=== PATIENT | female | born 1985 | race Caucasian/White ===

== ENCOUNTER → 2019-10-17 14:42 | Outpatient (CLI) | payer OTHER, MEDICAID, SELFPAY ==
[2019-10-17 15:22] LABS: Influenza A - CEPHEID Flu A NEGATIVE (NEGATIVE); Influenza B - CEPHEID Flu B NEGATIVE (NEGATIVE)
== END ==
PROVIDERS: Family Provider Family Medicine; PCP Family Medicine; Visit Provider Nurse Practitioner
DX: R68.89 Other general symptoms and signs (principal); J02.9 Acute pharyngitis, unspecified
CPT/HCPCS: 87070; 87077; 87147; 87502

== ENCOUNTER → 2020-05-09 12:03 | Outpatient (CLI) | payer OTHER, MEDICAID, SELFPAY ==
[2020-05-09 12:49] LABS: Add Manual Diff / Slide Review NO; Basophils Absolute Auto 0 /uL (0-100); Eosinophils Absolute Auto 200 /uL (0-450); Eosinophils Percent Auto 3.6 % (2-4); Hematocrit 36.4 % (36-46); Lymphocytes Absolute Auto 2000 /uL (1100-4500); Mean Corpuscular HGB Conc 33.1 % (30-36); Mean Corpuscular Hemoglobin 29.9 PG (26-34); Mean Corpuscular Volume 90.4 fL (80-100); Monocytes Absolute Auto 400 /uL (0-900); Monocytes Percent Auto 7.6 % (3-14); Neutrophils Absolute Auto 2400 /uL (1500-7000); Neutrophils Percent Auto 48.8 % (50-75); Platelet Count 256 X10^3/uL (150-400); Red Blood Cell Count 4.02 X10^6/uL (4.0-5.2); Red Cell Distribution Width 12.4 % (11.6-14.8)
[2020-05-09 13:13] LABS: Erythrocyte Sedimentation Rate 6 MM/HR (0-20)
[2020-05-09 13:16] LABS: Alanine Aminotransferase 10 IU/L (<35); Albumin 4.2 g/dL (3.5-5.0); Albumin Globulin Ratio 1.6 (1.0-2.8); Alkaline Phosphatase 54 U/L (38-126); Aspartate Aminotransferase 16 IU/L (14-36); BUN Creatinine Ratio 18.9 (6-22); Bilirubin Total 0.6 mg/dL (0.2-1.3); Blood Urea Nitrogen 10 mg/dL (7-17); C-Reactive Protein Quant 1.1 mg/dL (<1.0); Carbon Dioxide 27 mmol/L (22-32); Chloride 104 mmol/L (98-107); Estimated Glomerular Filt Rate > 60.0 mL/min (>60); Globulin 2.7 g/dL (1.7-4.1); Glucose 86 mg/dL (70-100); HEMOLYSIS < 15 (0-50); Potassium 4.3 mmol/L (3.4-5.1); Sodium 139 mmol/L (137-145); Total Protein 6.9 g/dL (6.3-8.2)
[2020-05-09 13:37] LABS: TSH w/ Reflex to FT4 1.25 uIU/mL (0.47-4.68)
[2020-05-09 18:12] LABS: Ferritin 25 ng/mL (6-137)
== END ==
PROVIDERS: Family Provider Family Medicine; PCP Family Medicine; Referring Provider Family Medicine; Visit Provider Family Medicine
DX: K52.9 Noninfective gastroenteritis and colitis, unspecified (principal); L65.9 Nonscarring hair loss, unspecified
CPT/HCPCS: 36415; 80053; 82728; 84443; 85025; 85651; 86140

== ENCOUNTER 2020-10-23 18:20 | Emergency (ER) | payer OTHER, MEDICAID, SELFPAY ==
[2020-10-23 18:26] VITALS: BP 148/98; PULSE 95; RESP 16; TEMP 36.3; O2SAT 100
[2020-10-23] MEDS: PROPARACAINE 0.5% OPHTH SOL 1 DROPS EYE-LEFT (18:33)
[2020-10-23] MEDS: FLUORESCEIN 1 MG STRIP EYE-BOTH (20:20)
--- NOTE | 2020-10-23 20:29 | ED_ITS ---
HPI - Eye Problem General Chief complaint: Eye Problems Stated complaint: left eye scratched at work Time Seen by Provider: 10/23/20 19:47 Source: patient Mode of arrival: Ambulatory History of Present Illness HPI Narrative: 35-year-old woman with no significant medical history presents with a minor eye injury. 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 She comes in for further evaluation. She does note redness, bleeding there is no restricted eye movement and no visual or acuity changes. Related Data Home Medications Medication Instructions Recorded Confirmed [arnica] #0 03/23/17 10/17/19 Previous Rx's Medication Instructions Recorded fluconazole 150 mg tablet 150 mg PO ONCE #1 tab 05/04/18 ondansetron 4 mg disintegrating 4 mg PO Q6H #14 tab 10/17/19 tablet azithromycin 250 mg tablet See Rx Instructions PO .COMPLEX #6 10/19/19 tab acyclovir 400 mg tablet 400 mg PO 5XD #35 tab 06/19/20 valacyclovir 1 gram tablet 2,000 mg PO Q12H #30 tab 06/19/20 norgestimate 0.25 mg-ethinyl 1 tab PO DAILY #112 tab 07/12/20 estradiol 35 mcg tablet Allergies Allergy/AdvReac Type Severity Reaction Status Date / Time Penicillins Allergy Severe SWOLLEN Verified 05/09/20 10:51 THROAT, HIVES - HOSPITALIZED nitrofurantoin Allergy Intermediate HIVES, Verified 05/09/20 10:51 INCR HR cephalexin Allergy Unknown Verified 05/09/20 10:51 clindamycin AdvReac Severe C. Verified 05/09/20 10:51 DIFFICILE ciprofloxacin AdvReac Mild DIARRHEA Verified 05/09/20 10:51 Review of Systems Review of Systems ROS Unobtainable: All systems reviewed & are unremarkable except as noted in HPI and below Patient History Medical History (Updated 10/24/20 @ 03:36 by Shweta Nguyen MD) Abnormal Pap smear of cervix Anemia Anxiety Cardiac arrhythmia (~1987) Carpal tunnel syndrome (~2007) Chicken pox Depression Frequent UTI (~2000) Hay fever History of recurrent ear infection (~1987) Human papilloma virus Irregular menstrual cycle Menometrorrhagia Migraines (~2002) Ovarian cyst (~2000) Plantar warts (~2013) Recurrent sinusitis (~1987) Vertigo (~2009) Surgical History Anesthesia History of dilatation and curettage Status post hysteroscopy (11/01/15) Social History marital status: unmarried,living together number of children: 0 household members: significant other lives independently: Yes housing: apartment education level: high school occupational status: employed current occupational exposures/hazards: No special mich needs: No Smoking Status: Former smoker Smoking Status: Former smoker Exam Narrative Exam Narrative: General: Alert appropriate in no acute distress HEENT: No obvious abnormalities on gross exam. Sclerae are unremarkable and noninjected bilaterally. Pupils are equal round and reactive. Slit-lamp exam of the left eye reveals a very small scratch appreciated on the medial aspect of the sclera that is very superficial. Respiratory: Able to speak in full sentences, no obvious respiratory distress Skin: No obvious rashes, warm and dry Neurologic: Grossly intact no obvious asymmetries or abnormalities Psych, appropriate insight and affect, cooperative Initial Vital Signs Initial Vital Signs: Vital Signs Temperature 97.4 F L 10/23/20 18:26 Pulse Rate 95 H 10/23/20 18:26 Respiratory Rate 16 10/23/20 18:26 Blood Pressure 148/98 H 10/23/20 18:26 Pulse Oximetry 100 10/23/20 18:26 Course Orders Ordered: Discontinued Medications Fluorescein Sodium (Fluorescein 1 Mg Strip) 1 mg EYE-BOTH NOW ONE Stop: 10/23/20 20:18 Last Admin: 10/23/20 20:20 Dose: 1 mg Documented by: DONNIE Proparacaine HCl (Proparacaine 0.5% Ophth Deborah) 1 drops EYE-LEFT NOW ONE Stop: 10/23/20 18:31 Last Admin: 10/23/20 18:33 Dose: 1 drops Documented by: SUSAN Vital Signs Vital signs: Vital Signs - 8 hr 10/23/20 18:26 Temperature 97.4 F L Pulse Rate 95 H Respiratory Rate 16 Blood Pressure 148/98 H Pulse Oximetry 100 MDM - Eye Problem MDM Narrative Medical decision making narrative: Minor superficial scratch to the medial aspect of the left sclera without significant injury. Conservative management no additional treatment required at this time. Questions are answered and patie nt is safe for home discharge Discharge Plan Departure Patient Disposition: Home Clinical Impression: Abrasion of sclera of left eye Qualifiers: Encounter type: initial encounter Qualified Code(s): S05.8X2A - Other injuries of left eye and orbit, initial encounter Instructions: DI for Corneal Abrasion Activity Restrictions/Additional Instructions: Thank you for coming in today You do have a very small cut to the surface of your eyeball that should heal beautifully within the next 24 hours. There is no need for antibiotics. There is no indication that this has punctured your eyeball and it is not affecting her vision at this time. Using 400 mg of ibuprofen (2 lxtr-xas-uisnakn pills) and 1 Tylenol every 6 hours can be very helpful in controlling pain. Avoiding computer screens and small detailed work requiring significant focus would be a good idea this evening If anything changes, please return to the emergency department Prescriptions: No Action ondansetron 4 mg tablet,disintegrating 4 mg PO Q6H Qty: 14 RF: 0 [arnica] Qty: 0 RF: 0 fluconazole [Diflucan] 150 mg tablet 150 mg PO ONCE Qty: 1 RF: 1 azithromycin 250 mg tablet See Rx Instructions PO .COMPLEX Qty: 6 RF: 0 acyclovir 400 mg tablet 400 mg PO 5XD Qty: 35 RF: 1 valacyclovir [Valtrex] 1 gram tablet 2,000 mg PO Q12H Qty: 30 RF: 2 norgestimate-ethinyl estradiol 0.25-35 mg-mcg tablet 1 tab PO DAILY Qty: 112 RF: 3 Referrals: Irma Moyer DO [Primary Care Provider] -
== END 2020-10-23 20:58 | disposition home or self-care (01) ==
PROVIDERS: Emergency Provider Emergency Medicine; Family Provider Family Medicine; PCP Family Medicine
DX: S05.8X2A Other injuries of left eye and orbit, initial encounter (principal); Y99.0 Civilian activity done for income or pay
CPT/HCPCS: 99281; 99282

== ENCOUNTER → 2020-12-26 12:02 | Outpatient (CLI) | payer OTHER, MEDICAID, SELFPAY ==
--- NOTE | 2020-12-26 12:03 | DI.RAD.S_ITS ---
PROCEDURE: XR FOOT LT MIN 3V INDICATIONS: left foot injury TECHNIQUE: 3 views of the foot were acquired. COMPARISON: None. FINDINGS: Bones: No fractures or dislocations. No suspicious bony lesions. Soft tissues: No tibiotalar joint effusion. Achilles tendon appears normal. IMPRESSION: No acute fracture. No osseous lesion. If symptoms and/or clinical suspicion for pathology persist, further assessment with repeat, or advanced imaging (e.g., CT, MRI, or bone scan) may be helpful for further assessment. Dictated by: Meliza Cruz M.D. on 12/26/2020 at 16:52 Approved by: Meliza Cruz M.D. on 12/26/2020 at 16:52
== END ==
PROVIDERS: Family Provider Family Medicine; PCP Family Medicine; Referring Provider Family Medicine; Visit Provider Family Medicine
DX: M79.672 Pain in left foot (principal); S93.602A Unspecified sprain of left foot, initial encounter; X58.XXXA Exposure to other specified factors, initial encounter
CPT/HCPCS: 73630

== ENCOUNTER → 2021-07-25 12:30 | Outpatient (CLI) | payer OTHER, MEDICAID, SELFPAY | PROVIDERS: Family Provider Family Medicine; PCP Family Medicine; Referring Provider Internal Medicine; Visit Provider Internal Medicine | DX: Z23 Encounter for immunization (principal) | CPT/HCPCS: 90471; 90686 ==

== ENCOUNTER → 2021-08-05 15:43 | Outpatient (CLI) | payer OTHER, MEDICAID, SELFPAY ==
[2021-08-05 16:10] LABS: COVID19 -Nasal RAPID Negative (Negative)
== END ==
PROVIDERS: Family Provider Family Medicine; PCP Family Medicine; Referring Provider Physician Assistant; Visit Provider Physician Assistant
DX: Z20.822 Contact with and (suspected) exposure to COVID-19 (principal)
CPT/HCPCS: 87635; C9803

== ENCOUNTER → 2021-08-11 16:51 | Outpatient (CLI) | payer OTHER, MEDICAID, SELFPAY ==
[2021-08-11 17:50] LABS: COVID19 -Nasal RAPID Negative (Negative)
== END ==
PROVIDERS: Family Provider Family Medicine; PCP Family Medicine; Visit Provider Physician Assistant
DX: Z20.822 Contact with and (suspected) exposure to COVID-19 (principal)
CPT/HCPCS: 87635; C9803

== ENCOUNTER 2021-09-08 15:12 | Emergency (ER) | payer OTHER, SELFPAY ==
[2021-09-08 15:43] VITALS: BP 106/70; PULSE 92; RESP 18; TEMP 35.8; O2SAT 100; BMI 20.1
--- NOTE | 2021-09-08 15:59 | DI.RAD.S_ITS ---
PROCEDURE: XR CHEST 1V INDICATIONS: COVID + TECHNIQUE: One view of the chest was acquired. COMPARISON: [facility], , CHEST 2 VIEW, 07/19/2010, 13:14. FINDINGS: Surgical changes and devices: None. Lungs and pleura: Lungs are clear. No pleural effusions or pneumothorax. Mediastinum: Mediastinal contours appear normal. Heart size is normal. Bones and chest wall: No suspicious bony lesions. Overlying soft tissues appear unremarkable. IMPRESSION: No acute cardiopulmonary disease process. Dictated by: Cathleen Rodriguez MD, PhD on 09/08/2021 at 16:07 Approved by: Cathleen Rodriguez MD, PhD on 09/08/2021 at 16:08
--- NOTE | 2021-09-08 16:30 | ED_ITS ---
HPI - Chest Pain <Jessa Victor PA-C - Last Filed: 09/08/21 17:37> General Chief Complaint: Chest Pain Stated Complaint: chest pains, hard to breath Covid + Time Seen by Provider: 09/08/21 16:29 Source: patient Mode of arrival: Ambulatory Limitations: no limitations History of Present Illness HPI narrative: 35-year-old female with past medical history anxiety and recent COVID-19 infection presents to the ED with 2 days of chest pain. Patient states she was diagnosed with COVID-19 1 week ago, experienced fevers, cough, myalgias. Starting yesterday, patient endorses feeling substernal chest pain when she takes a deep breath, and feeling like she needs to take good deep breath to get enough air. Patient denies any nausea, vomiting, lightheadedness, dizziness, syncope. Patient is vaccinated for COVID. Related Data Previous Rx's Medication Instructions Recorded valacyclovir 1 gram tablet 2,000 mg PO Q12H PRN #30 tab 08/13/21 (Valtrex) Allergies Allergy/AdvReac Type Severity Reaction Status Date / Time Penicillins Allergy Severe SWOLLEN Verified 09/08/21 15:51 THROAT, HIVES - HOSPITALIZED nitrofurantoin Allergy Intermediate HIVES, Verified 09/08/21 15:51 INCR HR cephalexin Allergy Unknown Verified 09/08/21 15:51 clindamycin AdvReac Severe C. Verified 09/08/21 15:51 DIFFICILE ciprofloxacin AdvReac Mild DIARRHEA Verified 09/08/21 15:51 Review of Systems <Jessa Victor PA-C - Last Filed: 09/08/21 17:37> Review of Systems ROS Unobtainable: All systems reviewed & are unremarkable except as noted in HPI and below Constitutional Constitutional: Reports body ache(s), Denies chills, Denies fatigue, Reports fever(s), Denies frequent falls, Denies lethargy and Denies weakness Eyes Eyes: Denies change in vision, Denies eye discharge, Denies irritation and Denies loss of vision ENT Ears, Nose, Mouth, and Throat: Denies change in voice, Denies dizziness, Denies neck pain, Denies sore throat and Denies throat swelling Cardiovascular Cardiovascular: Reports chest pain, Denies irregular heart rhythm, Denies lightheadedness, Denies palpitations, Reports dyspnea, Denies dyspnea on exertion and Denies orthopnea Respiratory Respiratory: Reports cough, Reports dyspnea, Denies dyspnea on exertion and Denies wheezing Gastrointestinal Gastrointestinal: Denies abdominal pain, Denies change in bowel habits, Denies diarrhea, Denies nausea and Denies vomiting Genitourinary Genitourinary: Denies hematuria, Denies flank pain, Denies urinary incontinence and Denies urinary urgency Musculoskeletal Musculoskeletal: Denies back pain, Denies muscle weakness, Denies neck pain, Denies numbness and Denies tingling Integumentary/Breasts Skin/Breast: Denies pruritus, Denies erythema, Denies rash and Denies wounds Neurologic Neurologic: Denies behavioral changes, Denies confusion, Denies dizziness, Denies frequent falls, Denies loss of vision, Denies numbness, Denies tingling and Denies weakness Psychiatric Psychiatric: Denies anxiety, Denies behavioral changes, Denies confusion, Denies depression, Denies homicidal ideation and Denies suicidal ideation Endocrine Endocrine: Denies fatigue, Denies flushing and Denies palpitations Hematologic/Lymphatic Hematologic/Lymphatic: Denies easy bruising Allergic/Immunologic Allergic/Immunologic: Denies urticaria, Denies throat swelling and Denies wheezing Patient History <Jessa Victor PA-C - Last Filed: 09/08/21 17:37> Medical History Abnormal Pap smear of cervix Anemia Anxiety Cardiac arrhythmia (~1987) Carpal tunnel syndrome (~2007) Chicken pox Depression Frequent UTI (~2000) Hay fever History of recurrent ear infection (~1987) Human papilloma virus Irregular menstrual cycle Menometrorrhagia Migraines (~2002) Ovarian cyst (~2000) Plantar warts (~2013) Recurrent sinusitis (~1987) Vertigo (~2009) Surgical History Anesthesia History of dilatation and curettage Status post hysteroscopy (11/01/15) Social History marital status: unmarried,living together number of children: 0 household members: significant other lives independently: Yes housing: apartment education level: high school occupational status: employed current occupational exposures/hazards: No special mich needs: No Smoking Status: Former smoker Smoking Status: Former smoker Substance Use Type: does not use Exam <SHARI Rubin Last Filed: 09/08/21 17:37> Initial Vital Signs Initial Vital Signs: Vital Signs Temperature 96.4 F L 09/08/21 15:43 Pulse Rate 92 H 09/08/21 15:43 Respiratory Rate 18 09/08/21 15:43 Blood Pressure 106/70 09/08/21 15:43 Pulse Oximetry 100 09/08/21 15:43 Const General: cooperative, healthy appearing and comfortable HENMT Head: normal to inspection Mouth: oral mucosae normal Throat: posterior oropharynx normal Eyes General: appearance normal, both eyes and all related structures Neck Neck: normal visual inspection Chest Chest: normal inspection of the chest Resp Effort & Inspection: decreased respiratory effort Auscultation: clear to auscultation bilaterally Cardio Rate: regular rate Rhythm: regular rhythm GI Other: Abdomen is soft, nondistended, nontender to palpation. Skin General: no rashes or lesions noted Neuro General: patient alert, patient awake and patient oriented x3 Psych Appearance: grossly normal <Patricia Parra DO - Last Filed: 09/09/21 09:20> Initial Vital Signs Initial Vital Signs: Vital Signs Temperature 96.4 F L 09/08/21 15:43 Pulse Rate 92 H 09/08/21 15:43 Respiratory Rate 18 09/08/21 15:43 Blood Pressure 106/70 09/08/21 15:43 Pulse Oximetry 100 09/08/21 15:43 Course <SHARI Rubin Last Filed: 09/08/21 17:37> Orders Ordered: ED Orders 09/08/21 15:59 XR chest 1V Stat 09/08/21 16:13 EKG-12 Lead Stat 09/08/21 16:15 C-Reactive Protein Quant Stat Complete Blood Count AUTO DIFF Stat Comprehensive Metabolic Panel Stat D Dimer Stat Ferritin Stat Lactate (Lactic Acid) Stat Lactate Dehydrogenase Stat NT-proBNP (BNP-Adult 18+) Stat Procalcitonin Stat Troponin & CK Cardiac Panel Stat 09/08/21 16:28 Blood Culture Stat Vital Signs Vital signs: Vital Signs - 8 hr 09/08/21 15:43 09/08/21 17:03 09/08/21 17:04 Temperature 96.4 F L Pulse Rate 92 H 80 78 Respiratory Rate 18 Blood Pressure 106/70 104/52 L Pulse Oximetry 100 100 99 09/08/21 17:33 Temperature Pulse Rate 76 Respiratory Rate 16 Blood Pressure 108/74 Pulse Oximetry 100 <Patricia Parra DO - Last Filed: 09/09/21 09:20> Orders Ordered: ED Orders 09/08/21 15:59 XR chest 1V Stat 09/08/21 16:13 EKG-12 Lead Stat 09/08/21 16:15 C-Reactive Protein Quant Stat Complete Blood Count AUTO DIFF Stat Comprehensive Metabolic Panel Stat D Dimer Stat Ferritin Stat Lactate (Lactic Acid) Stat Lactate Dehydrogenase Stat NT-proBNP (BNP-Adult 18+) Stat Procalcitonin Stat Troponin & CK Cardiac Panel Stat 09/08/21 16:28 Blood Culture Stat Vital Signs Vital signs: Vital Signs - 8 hr 09/08/21 15:43 09/08/21 17:03 09/08/21 17:04 Temperature 96.4 F L Pulse Rate 92 H 80 78 Respiratory Rate 18 Blood Pressure 106/70 104/52 L Pulse Oximetry 100 100 99 09/08/21 17:33 Temperature Pulse Rate 76 Respiratory Rate 16 Blood Pressure 108/74 Pulse Oximetry 100 MDM - Chest Pain <Jessa Victor PA-C - Last Filed: 09/08/21 17:37> Medical Records Data Attestation: I reviewed the patient's medical records. Lab Data Attestation: I reviewed the patient's lab results. Lab results narrative: Labs within normal limits Result diagrams: 09/08/21 16:15 09/08/21 16:15 Labs: Lab Results 09/08/21 09/08/21 09/08/21 Range/Units 16:15 16:15 16:15 WBC 5.1 (4.5-11.0) X10^3/uL RBC 4.20 (4.0-5.2) X10^6/uL Hgb 13.1 (12.0-16.0) g/dL Hct 37.3 (36-46) % MCV 88.7 (80-100) fL MCH 31.1 (26-34) PG MCHC 35.1 (30-36) % RDW 12.5 (11.6-14.8) % Plt Count 181 (150-400) X10^3/uL Neut % (Auto) 54.8 (50-75) % Lymph % (Auto) 37.1 (25-40) % [place] % (Auto) 7.2 (3-14) % Eos % (Auto) 0.4 L (2-4) % Baso % (Auto) 0.5 (0-2) % Neut # (Auto) 2800 (6622-0044) /uL Lymph # (Auto) 1900 (2483-5078) /uL [place] # (Auto) 400 (0-900) /uL Eos # (Auto) 0 (0-450) /uL Baso # (Auto) 0 (0-100) /uL D-Dimer < 200 (<230) ng/mL Sodium 141 (137-145) mmol/L Potassium 4.2 (3.4-5.1) mmol/L Chloride 105 (98-107) mmol/L Carbon Dioxide 30 (22-32) mmol/L BUN 11 (7-17) mg/dL Creatinine 0.55 (0.52-1.04) mg/dL Estimated GFR > 60.0 (>60) mL/min BUN/Creatinine Ratio 20.0 (6-22) Glucose 85 (70-100) mg/dL Lactate (0.7-2.1) mmol/L Calcium 9.4 (8.4-10.2) mg/dL Ferritin 44 (6-137) ng/mL Total Bilirubin 0.6 (0.2-1.3) mg/dL AST 28 (14-36) IU/L ALT 20 (<35) IU/L Alkaline Phosphatase 43 (38-126) U/L Lactate Dehydrogenase 322 (313-618) U/L Total Creatine Kinase 26 L (30-135) U/L CK-MB (CK-2) TNP CK-MB (CK-2) Rel Index TNP Troponin I < 0.012 (0.01-0.034) ng/mL C-Reactive Protein < 0.5 (<1.0) mg/dL NT-Pro-B Natriuret Pep 29 (<125) pg/mL Total Protein 7.9 (6.3-8.2) g/dL Albumin 4.8 (3.5-5.0) g/dL Globulin 3.1 (1.7-4.1) g/dL Albumin/Globulin Ratio 1.5 (1.0-2.8) Procalcitonin 0.04 (<0.5) ng/mL 09/08/21 Range/Units 16:15 WBC (4.5-11.0) X10^3/uL RBC (4.0-5.2) X10^6/uL Hgb (12.0-16.0) g/dL Hct (36-46) % MCV (80-100) fL MCH (26-34) PG MCHC (30-36) % RDW (11.6-14.8) % Plt Count (150-400) X10^3/uL Neut % (Auto) (50-75) % Lymph % (Auto) (25-40) % [place] % (Auto) (3-14) % Eos % (Auto) (2-4) % Baso % (Auto) (0-2) % Neut # (Auto) (3359-5189) /uL Lymph # (Auto) (9697-2869) /uL [place] # (Auto) (0-900) /uL Eos # (Auto) (0-450) /uL Baso # (Auto) (0-100) /uL D-Dimer (<230) ng/mL Sodium (137-145) mmol/L Potassium (3.4-5.1) mmol/L Chloride (98-107) mmol/L Carbon Dioxide (22-32) mmol/L BUN (7-17) mg/dL Creatinine (0.52-1.04) mg/dL Estimated GFR (>60) mL/min BUN/Creatinine Ratio (6-22) Glucose (70-100) mg/dL Lactate 0.9 (0.7-2.1) mmol/L Calcium (8.4-10.2) mg/dL Ferritin (6-137) ng/mL Total Bilirubin (0.2-1.3) mg/dL AST (14-36) IU/L ALT (<35) IU/L Alkaline Phosphatase (38-126) U/L Lactate Dehydrogenase (313-618) U/L Total Creatine Kinase (30-135) U/L CK-MB (CK-2) CK-MB (CK-2) Rel Index Troponin I (0.01-0.034) ng/mL C-Reactive Protein (<1.0) mg/dL NT-Pro-B Natriuret Pep (<125) pg/mL Total Protein (6.3-8.2) g/dL Albumin (3.5-5.0) g/dL Globulin (1.7-4.1) g/dL Albumin/Globulin Ratio (1.0-2.8) Procalcitonin (<0.5) ng/mL Imaging Data Chest x-ray: Radiologist's Impression: PROCEDURE:? XR CHEST 1V ? INDICATIONS:? COVID + ? TECHNIQUE:? One view of the chest was acquired.? ? COMPARISON:? [facility], , CHEST 2 VIEW, 07/19/2010, 13:14. ? FINDINGS:? ? Surgical changes and devices:? None.? ? Lungs and pleura:? Lungs are clear.? No pleural effusions or pneumothorax.? ? Mediastinum:? Mediastinal contours appear normal.? Heart size is normal.? ? Bones and chest wall:? No suspicious bony lesions.? Overlying soft tissues appear unremarkable.? ? ? IMPRESSION:? No acute cardiopulmonary disease process. ? ? ? Dictated by: Cathleen Rodriguez MD, PhD on 09/08/2021 at 16:07 ? ? Approved by: Cathleen Rodriguez MD, PhD on 09/08/2021 at 16:08 ? ECG Data Interpretation: Sinus rhythm. No ST-T changes. No axis deviation MDM Narrative Medical decision making narrative: 35-year-old female with past medical history anxiety and recent COVID-19 infection presents to the ED with 2 days of chest pain. Concern for pneumonia secondary to COVID-19 versus ACS versus heart failure. Will order labs, EKG, chest x-ray, troponin, BNP. Will re-evaluate. Workup negative. Will discharge home with ED return precautions, isolation/quarantine guidelines. <Patricia Parra, DO - Last Filed: 09/09/21 09:20> Lab Data Labs: Lab Results 09/08/21 09/08/21 09/08/21 Range/Units 16:15 16:15 16:15 WBC 5.1 (4.5-11.0) X10^3/uL RBC 4.20 (4.0-5.2) X10^6/uL Hgb 13.1 (12.0-16.0) g/dL Hct 37.3 (36-46) % MCV 88.7 (80-100) fL MCH 31.1 (26-34) PG MCHC 35.1 (30-36) % RDW 12.5 (11.6-14.8) % Plt Count 181 (150-400) X10^3/uL Neut % (Auto) 54.8 (50-75) % Lymph % (Auto) 37.1 (25-40) % [place] % (Auto) 7.2 (3-14) % Eos % (Auto) 0.4 L (2-4) % Baso % (Auto) 0.5 (0-2) % Neut # (Auto) 2800 (8458-2890) /uL Lymph # (Auto) 1900 (1206-4866) /uL [place] # (Auto) 400 (0-900) /uL Eos # (Auto) 0 (0-450) /uL Baso # (Auto) 0 (0-100) /uL D-Dimer < 200 (<230) ng/mL Sodium 141 (137-145) mmol/L Potassium 4.2 (3.4-5.1) mmol/L Chloride 105 (98-107) mmol/L Carbon Dioxide 30 (22-32) mmol/L BUN 11 (7-17) mg/dL Creatinine 0.55 (0.52-1.04) mg/dL Estimated GFR > 60.0 (>60) mL/min BUN/Creatinine Ratio 20.0 (6-22) Glucose 85 (70-100) mg/dL Lactate (0.7-2.1) mmol/L Calcium 9.4 (8.4-10.2) mg/dL Ferritin 44 (6-137) ng/mL Total Bilirubin 0.6 (0.2-1.3) mg/dL AST 28 (14-36) IU/L ALT 20 (<35) IU/L Alkaline Phosphatase 43 (38-126) U/L Lactate Dehydrogenase 322 (313-618) U/L Total Creatine Kinase 26 L (30-135) U/L CK-MB (CK-2) TNP CK-MB (CK-2) Rel Index TNP Troponin I < 0.012 (0.01-0.034) ng/mL C-Reactive Protein < 0.5 (<1.0) mg/dL NT-Pro-B Natriuret Pep 29 (<125) pg/mL Total Protein 7.9 (6.3-8.2) g/dL Albumin 4.8 (3.5-5.0) g/dL Globulin 3.1 (1.7-4.1) g/dL Albumin/Globulin Ratio 1.5 (1.0-2.8) Procalcitonin 0.04 (<0.5) ng/mL 09/08/21 Range/Units 16:15 WBC (4.5-11.0) X10^3/uL RBC (4.0-5.2) X10^6/uL Hgb (12.0-16.0) g/dL Hct (36-46) % MCV (80-100) fL MCH (26-34) PG MCHC (30-36) % RDW (11.6-14.8) % Plt Count (150-400) X10^3/uL Neut % (Auto) (50-75) % Lymph % (Auto) (25-40) % [place] % (Auto) (3-14) % Eos % (Auto) (2-4) % Baso % (Auto) (0-2) % Neut # (Auto) (0728-5444) /uL Lymph # (Auto) (8808-4957) /uL [place] # (Auto) (0-900) /uL Eos # (Auto) (0-450) /uL Baso # (Auto) (0-100) /uL D-Dimer (<230) ng/mL Sodium (137-145) mmol/L Potassium (3.4-5.1) mmol/L Chloride (98-107) mmol/L Carbon Dioxide (22-32) mmol/L BUN (7-17) mg/dL Creatinine (0.52-1.04) mg/dL Estimated GFR (>60) mL/min BUN/Creatinine Ratio (6-22) Glucose (70-100) mg/dL Lactate 0.9 (0.7-2.1) mmol/L Calcium (8.4-10.2) mg/dL Ferritin (6-137) ng/mL Total Bilirubin (0.2-1.3) mg/dL AST (14-36) IU/L ALT (<35) IU/L Alkaline Phosphatase (38-126) U/L Lactate Dehydrogenase (313-618) U/L Total Creatine Kinase (30-135) U/L CK-MB (CK-2) CK-MB (CK-2) Rel Index Troponin I (0.01-0.034) ng/mL C-Reactive Protein (<1.0) mg/dL NT-Pro-B Natriuret Pep (<125) pg/mL Total Protein (6.3-8.2) g/dL Albumin (3.5-5.0) g/dL Globulin (1.7-4.1) g/dL Albumin/Globulin Ratio (1.0-2.8) Procalcitonin (<0.5) ng/mL Discharge Plan Departure Patient Disposition: Home Clinical Impression: COVID-19 Instructions: DI for COVID-19 (Suspected or Confirmed ) Activity Restrictions/Additional Instructions: You were evaluated in the ED today for chest pain. Your EKG, chest x-ray, labs, vitals. were normal. Your symptoms are likely due to the COVID-19 infection. You may continue to take Tylenol and [id number] cough medications for symptoms. Return to the ED if you experience trouble breathing, chest pain. Please follow CDC guidelines for isolation/quarantine, which is currently isolation for 5 days from the onset of symptoms, followed by 5 days of masking in public after your symptoms have resolved. Prescriptions: No Action valacyclovir [Valtrex] 1 gram tablet 2,000 mg PO Q12H PRN (Reason: cold sores) Qty: 30 2RF Rx Instructions: Take 2 tabs every 12 hours x 1 day as needed for cold sores Referrals: Irma Moyer DO [Primary Care Provider] - <Patricia Parra DO - Last Filed: 09/09/21 09:20> Cosign ED Attending Coskristinature Attestation: I was immediately available in the department for consultation. Documentation has been reviewed.
[2021-09-08 16:50] LABS: Add Manual Diff / Slide Review NO; Basophils Absolute Auto 0 /uL (0-100); Basophils Percent Auto 0.5 % (0-2); Eosinophils Absolute Auto 0 /uL (0-450); Eosinophils Percent Auto 0.4 % (2-4); Hematocrit 37.3 % (36-46); Hemoglobin 13.1 g/dL (12.0-16.0); Lymphocytes Absolute Auto 1900 /uL (1100-4500); Lymphocytes Percent Auto 37.1 % (25-40); Mean Corpuscular HGB Conc 35.1 % (30-36); Mean Corpuscular Hemoglobin 31.1 PG (26-34); Mean Corpuscular Volume 88.7 fL (80-100); Monocytes Absolute Auto 400 /uL (0-900); Monocytes Percent Auto 7.2 % (3-14); Neutrophils Absolute Auto 2800 /uL (1500-7000); Neutrophils Percent Auto 54.8 % (50-75); Platelet Count 181 X10^3/uL (150-400); Red Cell Distribution Width 12.5 % (11.6-14.8); White Blood Cell Count 5.1 X10^3/uL (4.5-11.0)
[2021-09-08 16:55] LABS: Lactate (Lactic Acid) 0.9 mmol/L (0.7-2.1)
[2021-09-08 16:58] LABS: Alanine Aminotransferase 20 IU/L (<35); Albumin 4.8 g/dL (3.5-5.0); Albumin Globulin Ratio 1.5 (1.0-2.8); Alkaline Phosphatase 43 U/L (38-126); Aspartate Aminotransferase 28 IU/L (14-36); Bilirubin Total 0.6 mg/dL (0.2-1.3); Blood Urea Nitrogen 11 mg/dL (7-17); C-Reactive Protein Quant < 0.5 mg/dL (<1.0); Calcium 9.4 mg/dL (8.4-10.2); Carbon Dioxide 30 mmol/L (22-32); Chloride 105 mmol/L (98-107); Creatine Kinase 26 U/L (30-135); Estimated Glomerular Filt Rate > 60.0 mL/min (>60); Globulin 3.1 g/dL (1.7-4.1); Glucose 85 mg/dL (70-100); HEMOLYSIS < 15 (0-50); Lactate Dehydrogenase 322 U/L (313-618); Potassium 4.2 mmol/L (3.4-5.1); Sodium 141 mmol/L (137-145); Total Protein 7.9 g/dL (6.3-8.2)
[2021-09-08 17:03] VITALS: PULSE 80; O2SAT 100
[2021-09-08 17:04] VITALS: BP 104/52; PULSE 78; O2SAT 99
[2021-09-08 17:07] LABS: NT-proBNP (BNP-Adult 18+) 29 pg/mL (<125); Troponin I < 0.012 ng/mL (0.01-0.034)
[2021-09-08 17:11] LABS: Procalcitonin 0.04 ng/mL (<0.5)
[2021-09-08 17:13] LABS: D Dimer < 200 ng/mL (<230)
[2021-09-08 17:29] LABS: Ferritin 44 ng/mL (6-137)
[2021-09-08 17:33] VITALS: BP 108/74; PULSE 76; RESP 16; O2SAT 100
== END 2021-09-08 17:34 | disposition home or self-care (01) ==
PROVIDERS: Emergency Medicine; Emergency Provider Student in an Organized Health Care Education/Training Program; Family Provider Family Medicine; PCP Family Medicine
DX: U07.1 COVID-19 (principal); Z87.891 Personal history of nicotine dependence
CPT/HCPCS: 36415; 71045; 80053; 82550; 82728; 83605; 83615; 83880; 84145; 84484; 85025; 85379; 86140; 87040; 93005; 93010; 99283; 99284

== ENCOUNTER → 2021-12-29 12:53 | Outpatient (CLI) | payer OTHER, MEDICAID, SELFPAY ==
[2021-12-29 13:52] LABS: Add Manual Diff / Slide Review NO; Basophils Absolute Auto 100 /uL (0-100); Basophils Percent Auto 1.2 % (0-2); Eosinophils Absolute Auto 200 /uL (0-450); Eosinophils Percent Auto 2.5 % (2-4); Hematocrit 37.7 % (36-46); Hemoglobin 12.8 g/dL (12.0-16.0); Lymphocytes Absolute Auto 1900 /uL (1100-4500); Lymphocytes Percent Auto 27.8 % (25-40); Mean Corpuscular HGB Conc 33.9 % (30-36); Mean Corpuscular Hemoglobin 30.2 PG (26-34); Mean Corpuscular Volume 89.1 fL (80-100); Monocytes Absolute Auto 500 /uL (0-900); Monocytes Percent Auto 7.1 % (3-14); Neutrophils Absolute Auto 4100 /uL (1500-7000); Neutrophils Percent Auto 61.4 % (50-75); Platelet Count 274 X10^3/uL (150-400); Red Blood Cell Count 4.23 X10^6/uL (4.0-5.2); Red Cell Distribution Width 12.7 % (11.6-14.8); White Blood Cell Count 6.7 X10^3/uL (4.5-11.0)
[2021-12-29 14:42] LABS: TSH w/ Reflex to FT4 0.32 uIU/mL (0.47-4.68)
[2021-12-29 15:07] LABS: Free T4, Direct Thyroxine 1.34 ng/dL (0.78-2.19)
== END ==
PROVIDERS: Family Provider Family Medicine; PCP Family Medicine; Referring Provider Family Medicine; Visit Provider Family Medicine
DX: N92.1 Excessive and frequent menstruation with irregular cycle (principal)
CPT/HCPCS: 36415; 84439; 84443; 85025

== ENCOUNTER → 2022-02-05 12:23 | Outpatient (CLI) | payer OTHER, MEDICAID, SELFPAY | PROVIDERS: Family Provider Family Medicine; PCP Family Medicine; Visit Provider Nurse Practitioner Family | DX: J31.2 Chronic pharyngitis (principal) | CPT/HCPCS: 87070; 87880 ==

== ENCOUNTER → 2022-02-11 16:30 | Outpatient (CLI) | payer OTHER, MEDICAID, SELFPAY ==
[2022-02-11 17:53] LABS: TSH w/ Reflex to FT4 0.36 uIU/mL (0.47-4.68)
[2022-02-12 21:05] LABS: Free T4, Direct Thyroxine 1.22 ng/dL (0.78-2.19)
[2022-02-13 19:07] LABS: ANA Screen, IFA Positive (.)
== END ==
PROVIDERS: Family Provider Family Medicine; PCP Family Medicine; Referring Provider Family Medicine; Visit Provider Family Medicine
DX: E05.90 Thyrotoxicosis, unspecified without thyrotoxic crisis or storm (principal); N92.6 Irregular menstruation, unspecified
CPT/HCPCS: 36415; 84439; 84443; 86038

== ENCOUNTER → 2022-05-12 14:25 | Outpatient (CLI) | payer OTHER, MEDICAID, SELFPAY ==
--- NOTE | 2022-05-12 14:27 | DI.US.S_ITS ---
PROCEDURE: US PELVIC COMPLETE INDICATIONS: FOLLOW UP OVARIAN CYST TECHNIQUE: Real-time scanning was performed of the pelvic organs, with image documentation. Additional endovaginal scanning was necessary due to incomplete visualization of the adnexal and endometrial structures by transabdominal scanning. COMPARISON: [facility], US, US PELVIC COMPLETE WITH TRANSVAGINAL, 02/05/2022, 16:42. [facility], [place], PELVIC COMPLETE, 10/14/2015, 12:31. [facility], [place], PELVIC COMPLETE, 09/16/2009, 8:20. FINDINGS: Uterus: Uterus is anteverted and normal in size at 7.5 x 4.3 x 2.5 cm. The myometrium is homogeneous. The endometrium measures 4 mm combined thickness. There are prominent, ectatic veins within the lower uterine segment. Ovaries: The right ovary measures 2.6 x 3.1 x 1.5 cm, with a calculated ovarian volume of 6.3 cc. The left ovary measures 3.5 x 2.0 x 1.7 cm, with a calculated ovarian volume of 6.2 cc. The ovaries have a normal sonographic appearance. Greater than than 12 follicles can be seen in the right ovary. The left ovary is not well characterized. No adnexal masses are seen. There is a dominant left follicle. Other: No pathologic free abdominal or pelvic fluid. IMPRESSION: 1. Greater than 12 subcentimeter follicles are visualized within the right ovary. The left ovary is not well characterized on the current study. This finding meets the [place] definition of polycystic ovaries. In the absence of ovulatory dysfunction or clinically/biochemically diagnosed hyperandrogenism, findings are non specific and do not indicate the presence of polycystic ovarian syndrome. 2. Engorged vessels within the lower uterine segment which can be associated with pelvic congestion. We strive to produce accurate, complete, and clear reports of imaging services. To assist us in improving patient care, this report was composed using standard report templates and voice recognition software. Therefore, it may contain abnormal punctuation, insertions and/or omissions. Occasional wrong-word or sound-alike substitutions may occur. Though we review the report and make efforts to correct it, we do recommend that the report be read carefully in proper context to recognize any text inaccuracies. Dictated by: Melisa Coffey M.D. on 05/13/2022 at 8:21 Approved by: Melisa Coffey M.D. on 05/13/2022 at 8:27
== END ==
PROVIDERS: Family Provider Family Medicine; PCP Family Medicine; Referring Provider Obstetrics & Gynecology; Visit Provider Obstetrics & Gynecology
DX: N93.9 Abnormal uterine and vaginal bleeding, unspecified (principal)
CPT/HCPCS: 76830; 76856

== ENCOUNTER → 2022-07-02 12:29 | Outpatient (CLI) | payer OTHER, MEDICAID, SELFPAY ==
[2022-07-02 13:36] LABS: Hematocrit 34.6 % (36-46); Hemoglobin 11.8 g/dL (12.0-16.0); Mean Corpuscular HGB Conc 34.2 % (30-36); Mean Corpuscular Hemoglobin 30.5 PG (26-34); Mean Corpuscular Volume 89.1 fL (80-100); Platelet Count 232 X10^3/uL (150-400); Red Blood Cell Count 3.89 X10^6/uL (4.0-5.2); Red Cell Distribution Width 12.6 % (11.6-14.8)
[2022-07-02 14:42] LABS: TSH w/ Reflex to FT4 1.15 uIU/mL (0.47-4.68)
[2022-07-10 09:50] LABS: Percent Free Testosterone 1.28 % (0.50-2.80); Testosterone Free 0.17 ng/dL (0.10-0.85); Testosterone Total 12.9 ng/dL (10.0-55.0)
== END ==
PROVIDERS: Family Provider Family Medicine; PCP Family Medicine; Referring Provider Obstetrics & Gynecology; Visit Provider Obstetrics & Gynecology
DX: N93.9 Abnormal uterine and vaginal bleeding, unspecified (principal); E28.2 Polycystic ovarian syndrome
CPT/HCPCS: 36415; 82627; 84402; 84403; 84443; 85027

== ENCOUNTER 2022-09-23 10:30 | Outpatient (RCR) | payer OTHER, MEDICAID, SELFPAY ==
--- NOTE | 2022-07-30 17:45 | PT.OIE ---
Current Diagnoses Segmental and somatic dysfunction of pelvic region (07/30/22) Other specified conditions associated with female genital organs and menstrual cycle (07/30/22) Pelvic and perineal pain (07/30/22) Past Medical History (Last Reviewed 07/10/22 @ 18:58 by ALANNAH Mederos) Abnormal Pap smear of cervix Anemia Anxiety Cardiac arrhythmia (~1987) Carpal tunnel syndrome (~2007) Chicken pox Depression Frequent UTI (~2000) Hay fever History of recurrent ear infection (~1987) Human papilloma virus Irregular menstrual cycle Menometrorrhagia Migraines (~2002) Ovarian cyst (~2000) Plantar warts (~2013) Recurrent sinusitis (~1987) Vertigo (~2009) Past Surgical History (Last Reviewed 07/10/22 @ 18:58 by ALANNAH Mederos) Anesthesia History of dilatation and curettage Status post hysteroscopy (11/01/15) Visit Care Team Role Provider Type Irma Moyer DO Family Provider Physician Primary Care Provider Specialty: [facility] Practice Address: [address] [place] [address] Email: [email or web address] Attending Provider Referring Provider Specialty: Address: Phone: Fax: Email: Physical Therapy Initial Evaluation PT-OP-A Visit Information Start: 07/30/22 12:59 Freq: Status: Active Protocol: Document 07/30/22 16:07 [facility] (Rec: 07/30/22 16:41 [facility] [id number]) Out-Patient Physical Therapy Visit Information Visit Information Visit Type Initial Evaluation Visit Start Time 16:00 Visit Stop Time 16:45 Total Visit Minutes 45 Visit Number 1 Evaluation Information Evaluation Date 07/30/22 PT-OP-B Current Condition Start: 07/30/22 12:59 Freq: Status: Active Protocol: Document 07/30/22 16:07 [facility] (Rec: 07/30/22 16:41 [facility] [id number]) Current Condition History of Current Condition Current Complaints pelvic pain, bladder urgency, decreaed ability to fully void History of Current Condition pt has had pelvic pain since she got her first period, she was put on control when she was 15. She went off the control last year as she wants to have a baby, she started having a lot of pain, she experienced lengthy periods, she was diagnosed with polycystic ovarian syndrome, endometretiosis, pain can get so bad that walking can make her sick, she has engorged blood vessels in her uterus and pelvic congestion syndrome She has 13 cycts on both of her ovaries SHe did go back on control x 5 months ago and periods have been more regulated SHe had a mass on her uterus in 2016 and they went in and cleaned it all up. She feels pelvic pressure and heaviness and so much pressure This last year she started getting rectal spasms as well as in her vaginal canal. Sometimes the spasms were more on the left side. She has irratible bowel with diarhea She feels like she can't fully empty her bladder She has a strong urge to void and she feels like her bladder is very small. 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 be stripped last june Treatment Goals Patient/Caregiver Goals pts goals are to reduce pain and improve function Prior Functional Status Baseline Function- ADL's Independent Baseline Function- Mobility Independent PT-OP-C Subjective Start: 07/30/22 12:59 Freq: Status: Active Protocol: Document 07/30/22 17:05 [facility] (Rec: 08/04/22 17:20 [facility] [id number]) Patient Questionnaires Pelvic Pain and Urgency/Frequency Patient Symptom Scale Pelvic Pain Score 22 OP-PT Pain Assessment Location suprapubic fascia Pain Location Details suprapubic fascia Intensity 9 Scale Used Numeric (0 - 10) Description- Other pt describes pelvic pressure and heaviness coccyx Pain Location Details coccyx pain Intensity 9 Scale Used Numeric (0 - 10) Description Aching Description- Other pt describes pain as ranging from 6-9/10 Frequency Daily B Low back Pain Location Details Bilateral low back pain Intensity 6 Scale Used Numeric (0 - 10) PT-OP-F Manual Assessment Start: 07/30/22 12:59 Freq: Status: Active Protocol: Document 07/30/22 17:05 [facility] (Rec: 08/04/22 17:20 [facility] [id number]) Manual Assessments Soft Tissue Assessment Soft Tissue Mobility Assessment myofascial restrictions in the region of the diaphragm with poor diaphragmatic excursion levator ani guarding bilaterally, tightness of the suprapubic fascia, lumbar paraspinal tightness and guarding PT-OP-I Pelvic Floor Start: 07/30/22 12:59 Freq: Status: Active Protocol: Document 07/30/22 17:05 [facility] (Rec: 08/04/22 17:20 [facility] [id number]) Pelvic Floor Assessment Urine Pelvic Floor Surgery No Pelvic Clock Pelvic Clock 12-3 Guarding,Tenderness Pelvic Clock 3-6 Guarding,Tenderness Pelvic Clock 6-9 Guarding,Tenderness Pelvic Clock 9-12 Guarding,Tenderness Contraction Ability Voluntary Contraction Moderate Manual Muscle Testing Left 3 Manual Muscle Testing Right 3 Manual Muscle Testing Anterior 3 Manual Muscle Testing Posterior 3 Muscle Endurance (Seconds) 5 PT-OP-J Posture/Palpation/Skin Start: 07/30/22 12:59 Freq: Status: Active Protocol: Document 07/30/22 17:05 [facility] (Rec: 08/04/22 17:20 [facility] [id number]) Palpation Assessment Location B low back Palpation Location bilateral lumbar paraspinals Palpation Findings Muscle Guarding PT-OP-Q Treatments Start: 07/30/22 12:59 Freq: Status: Active Protocol: Document 07/30/22 17:05 [facility] (Rec: 08/04/22 17:20 [facility] [id number]) Self-Care/Home Management Treatment Education Patient Education Home Exercise Program,Pain Management Other Education pt was educated in elevating her pelvis for pelvic decompression, she was given a HEP of diaphragmatic breathing and enducated in contract/relax of her pelvic floor muscles PT-OP-T Assessment and Plan Start: 07/30/22 12:59 Freq: Status: Active Protocol: Document 07/30/22 16:07 [facility] (Rec: 08/04/22 17:20 [facility] [id number]) Physical Therapy Assessment Rehab Potential Rehabilitation Potential Excellent Evaluation Complexity Number of Personal Factors/Comorbidities 0 Number of Body Systems Impaired 1-2 Clinical Presentation at Evaluation Stable Impairments Impairments Activity Tolerance,Functional Activities,Pain,Posture,Soft Tissue Mobility Goals 3 Impairment elevated tone and guarding of the levator ani muscles Fpc Goal (LTG) Re is able to relax her pelvic floor at rest to baseline on EMG biofeedback. LTG Duration 12 weeks 2 Impairment poor diaphragmatic breathing excursion with pelvic floor tightness with every inhale Short Term Goal (STG) Re is able to perform good diaphragmatic breaths with pelvic floor relaxation upon her inhale STG Duration 4 weeks 1 Impairment pelvic pain, pelvic heaviness and pressure Short Term Goal (STG) pt is educated on pain relief techniques such as pelvic decompression, diaphragmatic breathing, gentle stretches for the pelvic floor STG Duration 4 weeks Cell Room Supervisor Goal (LTG) With manual therapy techniques Re notes a overall reduction in her pain levels from 6-9/10 to 3-4/10 . Her full goal would be to get to the point with her pain levels that she can discontinue the control working towards conception LTG Duration 12 weeks + Assessment Summary Assessment Re is a 36 year old female referred to PT with pelvic and perineal pain as well as low back pain. She reports her symptoms flared when she tried going off her control that she has been on since she was 15. She was put on control at 15 due to heavy bleeding, pain and cramping. control helped her to manage her symptoms. However now that Re is 36 she would like to start a family. When she went off her control this last year her pain increased a great amount. She started experiencing lengthly periods and was diagnosed with polycystic ovarian syndrome and endometriosis. She also reports being diagnosed with pelvic congestion syndrome. Re reports she has multiple cysts on both ovaries. Six months ago she returned to the control due to her pain being so severe. She has slowly gotten some relief with this however she is still in a lot of pain and notes a great deal of pelvic pressure and heaviness. She does have a history of a DNC in 2016 to remove a mass on her uterus. Another piece of history I feel is important is that Re notes she has never been a good sleeper. She reports insomnia and a great deal of difficulty sleeping and this has been going on for a long time. She is also a mouth breather. With assessment today Re is guarded and tight in her upper abdominal wall, she demonstrates poor diaphram excursion and breaths with her upper neck. She was educated in gentle diaphragmatic breathing today, she was shown how to elevate her pelvis for pelvic decompression and this felt really good to her. With pelvic floor examination she is guarded in B snider of her levator ani and has difficulty relaxing a pelvic floor contraction once she is contracted. She will be a good candidate for EMG biofeedback working on relaxed awareness of the pelvic floor . Treatment will also address tightness with myofascial release and gentle stretches for the pelvic floor , lymphatic drainage techniques to help decrease pelvic congestion Physical Therapy Plan Frequency and Duration Frequency of Treatment 1x/Week Duration of treatment (weeks) 12 Plan of Care Start Date 07/30/22 Plan of Care End Date 09/24/22 Therapeutic Interventions Therapeutic Interventions Home Exercise Program,Manual Therapy,Neuromuscular Re- education,Patient/Caregiver Education,Self-Care/Home Management,Soft Tissue Mobilization,Therapeutic Exercises Modalities Biofeedback Next Visit Focus/Plan Next Note Type Treatment Note Next Visit Plan review diaphragmatic breathing , add in stretches for pelvic pain, begin EMG biofeedback for pelvic floor down training and relaxation, manual lymphatic drainage techniques to assist in decreasing pelvic congestion
--- NOTE | 2022-08-04 17:45 | PT.OPPOC ---
Physical, Occupational & Speech Therapy At Current Diagnoses Segmental and somatic dysfunction of pelvic region (07/30/22) Other specified conditions associated with female genital organs and menstrual cycle (07/30/22) Pelvic and perineal pain (07/30/22) Visit Care Team Role Provider Type Irma Moyer DO Family Provider Physician Primary Care Provider Specialty: Family Practice Address: [address] [place] [address], [place], [address] Email: [email or web address] Attending Provider Referring Provider Specialty: Address: Phone: Fax: Email: Plan Of Care PT-OP-T Assessment and Plan Start: 07/30/22 12:59 Freq: Status: Active Protocol: Document 07/30/22 16:07 [facility] (Rec: 08/04/22 17:20 [facility] [id number]) Physical Therapy Assessment Rehab Potential Rehabilitation Potential Excellent Evaluation Complexity Number of Personal Factors/Comorbidities 0 Number of Body Systems Impaired 1-2 Clinical Presentation at Evaluation Stable Impairments Impairments Activity Tolerance,Functional Activities,Pain,Posture,Soft Tissue Mobility Goals 3 Impairment elevated tone and guarding of the levator ani muscles Gasket Winder Goal (LTG) Re is able to relax her pelvic floor at rest to baseline on EMG biofeedback. LTG Duration 12 weeks 2 Impairment poor diaphragmatic breathing excursion with pelvic floor tightness with every inhale Short Term Goal (STG) Re is able to perform good diaphragmatic breaths with pelvic floor relaxation upon her inhale STG Duration 4 weeks 1 Impairment pelvic pain, pelvic heaviness and pressure Short Term Goal (STG) pt is educated on pain relief techniques such as pelvic decompression, diaphragmatic breathing, gentle stretches for the pelvic floor STG Duration 4 weeks Alf Goal (LTG) With manual therapy techniques Re notes a overall reduction in her pain levels from 6-9/10 to 3-4/10 . Her full goal would be to get to the point with her pain levels that she can discontinue the control working towards conception LTG Duration 12 weeks + Assessment Summary Assessment Re is a 36 year old female referred to PT with pelvic and perineal pain as well as low back pain. She reports her symptoms flared when she tried going off her control that she has been on since she was 15. She was put on control at 15 due to heavy bleeding, pain and cramping. control helped her to manage her symptoms. However now that Re is 36 she would like to start a family. When she went off her control this last year her pain increased a great amount. She started experiencing lengthy periods and was diagnosed with polycystic ovarian syndrome and endometriosis. She also reports being diagnosed with pelvic congestion syndrome. Re reports she has multiple cysts on both ovaries. Six months ago she returned to the control due to her pain being so severe. She has slowly gotten some relief with this however she is still in a lot of pain and notes a great deal of pelvic pressure and heaviness. She does have a history of a DNC in 2016 to remove a mass on her uterus. Another piece of history I feel is important is that Re notes she has never been a good sleeper. She reports insomnia and a great deal of difficulty sleeping and this has been going on for a long time. She is also a mouth breather. With assessment today Re is guarded and tight in her upper abdominal wall, she demonstrates poor diaphragm excursion and breaths with her upper neck. She was educated in gentle diaphragmatic breathing today, she was shown how to elevate her pelvis for pelvic decompression and this felt really good to her. With pelvic floor examination she is guarded in B snider of her levator ani and has difficulty relaxing a pelvic floor contraction once she is contracted. She will be a good candidate for EMG biofeedback working on relaxed awareness of the pelvic floor . Treatment will also address tightness with myofascial release and gentle stretches for the pelvic floor , lymphatic drainage techniques to help decrease pelvic congestion Physical Therapy Plan Frequency and Duration Frequency of Treatment 1x/Week Duration of treatment (weeks) 12 Plan of Care Start Date 07/30/22 Plan of Care End Date 09/24/22 Therapeutic Interventions Therapeutic Interventions Home Exercise Program,Manual Therapy,Neuromuscular Re- education,Patient/Caregiver Education,Self-Care/Home Management,Soft Tissue Mobilization,Therapeutic Exercises Modalities Biofeedback Next Visit Focus/Plan Next Note Type Treatment Note Next Visit Plan review diaphragmatic breathing , add in stretches for pelvic pain, begin EMG biofeedback for pelvic floor down training and relaxation, manual lymphatic drainage techniques to assist in decreasing pelvic congestion Plan of Care Dates Plan of Care Start Date 07/30/22 Plan of Care End Date 09/24/22 Electronically Signed by: Kaycee Velazquez, PT 08/04/22 9365 If you are in agreement with this Plan of Care, please return a signed and dated copy. I have reviewed this Plan of Care and certify that the skilled therapy services above are required to meet the patient?s needs. Physician Signature Date Printed Name and Credentials Clinical Instructor Signature Printed Name and Credentials
--- NOTE | 2022-08-06 17:19 | PT.OTN ---
Current Diagnoses Segmental and somatic dysfunction of pelvic region (08/06/22) Other specified conditions associated with female genital organs and menstrual cycle (08/06/22) Pelvic and perineal pain (08/06/22) Physical Therapy Treatment Note PT-OP-A Visit Information Start: 07/30/22 12:59 Freq: Status: Active Protocol: Document 08/06/22 16:01 [facility] (Rec: 08/06/22 17:18 [facility] [id number]) Out-Patient Physical Therapy Visit Information Visit Information Visit Type Treatment Note Visit Start Time 16:00 Visit Stop Time 16:45 Total Visit Minutes 45 Visit Number 2 Evaluation Information Evaluation Date 07/30/22 PT-OP-B Current Condition Start: 07/30/22 12:59 Freq: Status: Active Protocol: Document 07/30/22 16:07 [facility] (Rec: 07/30/22 16:41 [facility] [id number]) Current Condition History of Current Condition Current Complaints pelvic pain, bladder urgency, decreaed ability to fully void History of Current Condition pt has had pelvic pain since she got her first period, she was put on control when she was 15. She went off the control last year as she wants to have a baby, she started having a lot of pain, she experienced lengthy periods, she was diagnosed with polycystic ovarian syndrome, endometretiosis, pain can get so bad that walking can make her sick, she has engorged blood vessels in her uterus and pelvic congestion syndrome She has 13 cycts on both of her ovaries SHe did go back on control x 5 months ago and periods have been more regulated SHe had a mass on her uterus in 2016 and they went in and cleaned it all up. She feels pelvic pressure and heaviness and so much pressure This last year she started getting rectal spasms as well as in her vaginal canal. Sometimes the spasms were more on the left side. She has irratible bowel with diarhea She feels like she can't fully empty her bladder She has a strong urge to void and she feels like her bladder is very small. 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 be stripped last june Treatment Goals Patient/Caregiver Goals pts goals are to reduce pain and improve function Prior Functional Status Baseline Function- ADL's Independent Baseline Function- Mobility Independent PT-OP-C Subjective Start: 07/30/22 12:59 Freq: Status: Active Protocol: Document 08/06/22 16:01 [facility] (Rec: 08/06/22 17:18 [facility] [id number]) OP-PT Subjective Patient Comments Patient Comments the feet up the wall stretch was very relaxing and calming she did it for 20 min and did her breathing exercises and felt pressure PT-OP-F Manual Assessment Start: 07/30/22 12:59 Freq: Status: Active Protocol: Document 07/30/22 17:05 [facility] (Rec: 08/04/22 17:20 [facility] [id number]) Manual Assessments Soft Tissue Assessment Soft Tissue Mobility Assessment myofascial restrictions in the region of the diaphragm with poor diaphragmatic excursion levator ani guarding bilaterally, tightness of the suprapubic fascia, lumbar paraspinal tightness and guarding PT-OP-I Pelvic Floor Start: 07/30/22 12:59 Freq: Status: Active Protocol: Document 07/30/22 17:05 [facility] (Rec: 08/04/22 17:20 [facility] [id number]) Pelvic Floor Assessment Urine Pelvic Floor Surgery No Pelvic Clock Pelvic Clock 12-3 Guarding,Tenderness Pelvic Clock 3-6 Guarding,Tenderness Pelvic Clock 6-9 Guarding,Tenderness Pelvic Clock 9-12 Guarding,Tenderness Contraction Ability Voluntary Contraction Moderate Manual Muscle Testing Left 3 Manual Muscle Testing Right 3 Manual Muscle Testing Anterior 3 Manual Muscle Testing Posterior 3 Muscle Endurance (Seconds) 5 PT-OP-J Posture/Palpation/Skin Start: 07/30/22 12:59 Freq: Status: Active Protocol: Document 07/30/22 17:05 [facility] (Rec: 08/04/22 17:20 [facility] [id number]) Palpation Assessment Location B low back Palpation Location bilateral lumbar paraspinals Palpation Findings Muscle Guarding PT-OP-Q Treatments Start: 07/30/22 12:59 Freq: Status: Active Protocol: Document 08/06/22 16:01 [facility] (Rec: 08/06/22 17:18 [facility] [id number]) Neuro Re-Education Treatment Other Activities EMG biofeedback for the pelvic floor Comments EMG biofeedback for pelvic floor down training, pt also lacks pelvic floor endurance and had difficulty sustaining a pelvic floor contraction PT-OP-T Assessment and Plan Start: 07/30/22 12:59 Freq: Status: Active Protocol: Document 08/06/22 16:01 [facility] (Rec: 08/06/22 17:18 [facility] [id number]) Physical Therapy Assessment Assessment Summary Assessment Average resting tone on EMG biofeedback is 4.0 uv average of 12 uv and max of 25 average rest was 6 uv. Re has noted that she has been able to relax with the legs up the wall and diaphragmatic breathing. I reviewed gentle lymphatic massage today and started MFR over the lower abdominal wall. She is tender on the left side and notes she has been sore there since her surgery to remove the uterine cyst in 2015 Physical Therapy Plan Frequency and Duration Frequency of Treatment 1x/Week Duration of treatment (weeks) 12 Plan of Care Start Date 07/30/22 Plan of Care End Date 09/24/22 Therapeutic Interventions Therapeutic Interventions Home Exercise Program,Manual Therapy,Neuromuscular Re- education,Patient/Caregiver Education,Self-Care/Home Management,Soft Tissue Mobilization,Therapeutic Exercises Modalities Biofeedback Next Visit Focus/Plan Next Note Type Treatment Note Next Visit Plan continue with MFR techniques, Manual lymphatic drainage, EMG biofeedback, begin manual techniques for pelvic floor relaxation
--- NOTE | 2022-08-20 17:18 | PT.OTN ---
Current Diagnoses Segmental and somatic dysfunction of pelvic region (08/20/22) Other specified conditions associated with female genital organs and menstrual cycle (08/20/22) Pelvic and perineal pain (08/20/22) Physical Therapy Treatment Note PT-OP-A Visit Information Start: 07/30/22 12:59 Freq: Status: Active Protocol: Document 08/20/22 16:00 [facility] (Rec: 08/20/22 17:18 [facility] [id number]) Out-Patient Physical Therapy Visit Information Visit Information Visit Type Treatment Note Visit Start Time 16:00 Visit Stop Time 16:45 Total Visit Minutes 45 Visit Number 3 Evaluation Information Evaluation Date 07/30/22 PT-OP-B Current Condition Start: 07/30/22 12:59 Freq: Status: Active Protocol: Document 07/30/22 16:07 [facility] (Rec: 07/30/22 16:41 [facility] [id number]) Current Condition History of Current Condition Current Complaints pelvic pain, bladder urgency, decreaed ability to fully void History of Current Condition pt has had pelvic pain since she got her first period, she was put on control when she was 15. She went off the control last year as she wants to have a baby, she started having a lot of pain, she experienced lengthy periods, she was diagnosed with polycystic ovarian syndrome, endometretiosis, pain can get so bad that walking can make her sick, she has engorged blood vessels in her uterus and pelvic congestion syndrome She has 13 cycts on both of her ovaries SHe did go back on control x 5 months ago and periods have been more regulated SHe had a mass on her uterus in 2016 and they went in and cleaned it all up. She feels pelvic pressure and heaviness and so much pressure This last year she started getting rectal spasms as well as in her vaginal canal. Sometimes the spasms were more on the left side. She has irratible bowel with diarhea She feels like she can't fully empty her bladder She has a strong urge to void and she feels like her bladder is very small. 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 She also has a lot of breasttenderness with this new pill that she is on. She has a video chat in August. She also notes that her pain internally is in the front. SHe is on a cycle with her pills that she will have a period 1 xm every 4 months PT-OP-F Manual Assessment Start: 07/30/22 12:59 Freq: Status: Active Protocol: Document 07/30/22 17:05 [facility] (Rec: 08/04/22 17:20 [facility] [id number]) Manual Assessments Soft Tissue Assessment Soft Tissue Mobility Assessment myofascial restrictions in the region of the diaphragm with poor diaphragmatic excursion levator ani guarding bilaterally, tightness of the suprapubic fascia, lumbar paraspinal tightness and guarding PT-OP-I Pelvic Floor Start: 07/30/22 12:59 Freq: Status: Active Protocol: Document 07/30/22 17:05 [facility] (Rec: 08/04/22 17:20 [facility] [id number]) Pelvic Floor Assessment Urine Pelvic Floor Surgery No Pelvic Clock Pelvic Clock 12-3 Guarding,Tenderness Pelvic Clock 3-6 Guarding,Tenderness Pelvic Clock 6-9 Guarding,Tenderness Pelvic Clock 9-12 Guarding,Tenderness Contraction Ability Voluntary Contraction Moderate Manual Muscle Testing Left 3 Manual Muscle Testing Right 3 Manual Muscle Testing Anterior 3 Manual Muscle Testing Posterior 3 Muscle Endurance (Seconds) 5 PT-OP-J Posture/Palpation/Skin Start: 07/30/22 12:59 Freq: Status: Active Protocol: Document 07/30/22 17:05 [facility] (Rec: 08/04/22 17:20 [facility] [id number]) Palpation Assessment Location B low back Palpation Location bilateral lumbar paraspinals Palpation Findings Muscle Guarding PT-OP-Q Treatments Start: 07/30/22 12:59 Freq: Status: Active Protocol: Document 08/20/22 16:00 [facility] (Rec: 08/20/22 17:18 [facility] [id number]) Manual Therapy Treatment Soft Tissue Mobilization MFR over the suprapubic fascia and lower left abdominal wall Comments pt tolerated this well but was tender on the left side of the abdominal wall. SHe noted after last visit she did feel things were looser to her MFR techniques for the pelvic floor Comments MFR techniques for the levator ani B, left side of the levator ani is tighter than the right side. Pt was tender but was able to relax with manual therapy work Neuro Re-Education Treatment Other Activities EMG biofeedback for the pelvic floor Comments pt able to drop to a 2.0 uv on EMG biofeedback following MFR techniques for the pelvic floor. She was shown a thera wand for self release as well as julva cream for her tissue that is irritated and dry. Self-Care/Home Management Treatment Education Patient Education Home Exercise Program,Pain Management Other Education pt was educated on using a therawand and julva cream or coconut oil for her vaginal tissues PT-OP-T Assessment and Plan Start: 07/30/22 12:59 Freq: Status: Active Protocol: Document 08/20/22 16:00 [facility] (Rec: 08/20/22 17:18 [facility] [id number]) Physical Therapy Assessment Goals 3 Impairment elevated tone and guarding of the levator ani muscles Addictions Therapist Goal (LTG) Re is able to relax her pelvic floor at rest to baseline on EMG biofeedback. LTG Duration 12 weeks 2 Impairment poor diaphragmatic breathing excursion with pelvic floor tightness with every inhale Short Term Goal (STG) Re is able to perform good diaphragmatic breaths with pelvic floor relaxation upon her inhale STG Duration 4 weeks 1 Impairment pelvic pain, pelvic heaviness and pressure Short Term Goal (STG) pt is educated on pain relief techniques such as pelvic decompression, diaphragmatic breathing, gentle stretches for the pelvic floor STG Duration 4 weeks Addictions Therapist Goal (LTG) With manual therapy techniques Re notes a overall reduction in her pain levels from 6-9/10 to 3-4/10 . Her full goal would be to get to the point with her pain levels that she can discontinue the control working towards conception LTG Duration 12 weeks + Assessment Summary Assessment left side of the levator ani is guarded as compared to the right but following manual techniques Re's resting tone dropped to 2 uv. She was educated on use of a therawand for self pelvic floor relaxation and I feel she may be a good candidate for this. Physical Therapy Plan Frequency and Duration Frequency of Treatment 1x/Week Duration of treatment (weeks) 12 Plan of Care Start Date 07/30/22 Plan of Care End Date 09/24/22 Next Visit Focus/Plan Next Note Type Treatment Note Next Visit Plan continue with MFR techniques, Manual lymphatic drainage, EMG biofeedback, continue manual techniques for pelvic floor relaxation
--- NOTE | 2022-08-27 13:13 | PT.OTN ---
Current Diagnoses Segmental and somatic dysfunction of pelvic region (08/27/22) Other specified conditions associated with female genital organs and menstrual cycle (08/27/22) Pelvic and perineal pain (08/27/22) Physical Therapy Treatment Note PT-OP-A Visit Information Start: 07/30/22 12:59 Freq: Status: Active Protocol: Document 08/27/22 11:29 [facility] (Rec: 08/27/22 12:19 [facility] [id number]) Out-Patient Physical Therapy Visit Information Visit Information Visit Type Treatment Note Visit Start Time 11:29 Visit Stop Time 12:14 Total Visit Minutes 45 Visit Number 4 PT-OP-B Current Condition Start: 07/30/22 12:59 Freq: Status: Active Protocol: Document 07/30/22 16:07 [facility] (Rec: 07/30/22 16:41 [facility] [id number]) Current Condition History of Current Condition Current Complaints pelvic pain, bladder urgency, decreaed ability to fully void History of Current Condition pt has had pelvic pain since she got her first period, she was put on control when she was 15. She went off the control last year as she wants to have a baby, she started having a lot of pain, she experienced lengthy periods, she was diagnosed with polycystic ovarian syndrome, endometretiosis, pain can get so bad that walking can make her sick, she has engorged blood vessels in her uterus and pelvic congestion syndrome She has 13 cycts on both of her ovaries SHe did go back on control x 5 months ago and periods have been more regulated SHe had a mass on her uterus in 2016 and they went in and cleaned it all up. She feels pelvic pressure and heaviness and so much pressure This last year she started getting rectal spasms as well as in her vaginal canal. Sometimes the spasms were more on the left side. She has irratible bowel with diarhea She feels like she can't fully empty her bladder She has a strong urge to void and she feels like her bladder is very small. 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 be stripped last june Treatment Goals Patient/Caregiver Goals pts goals are to reduce pain and improve function Prior Functional Status Baseline Function- ADL's Independent Baseline Function- Mobility Independent PT-OP-C Subjective Start: 07/30/22 12:59 Freq: Status: Active Protocol: Document 08/27/22 11:29 [facility] (Rec: 08/27/22 12:19 [facility] [id number]) OP-PT Subjective Patient Comments Patient Comments pain is getting better, she did have alot of pain on the left side and uterus and ovaries after manual treatment , last night she felt pain on the right side and her breasts were very sore. She does feel that overall her pain seems less. She notes how tight she feels in the posterior gluteal area and in her hips Patient Reported Progress Improving PT-OP-F Manual Assessment Start: 07/30/22 12:59 Freq: Status: Active Protocol: Document 07/30/22 17:05 [facility] (Rec: 08/04/22 17:20 [facility] [id number]) Manual Assessments Soft Tissue Assessment Soft Tissue Mobility Assessment myofascial restrictions in the region of the diaphragm with poor diaphragmatic excursion levator ani guarding bilaterally, tightness of the suprapubic fascia, lumbar paraspinal tightness and guarding PT-OP-I Pelvic Floor Start: 07/30/22 12:59 Freq: Status: Active Protocol: Document 07/30/22 17:05 [facility] (Rec: 08/04/22 17:20 [facility] [id number]) Pelvic Floor Assessment Urine Pelvic Floor Surgery No Pelvic Clock Pelvic Clock 12-3 Guarding,Tenderness Pelvic Clock 3-6 Guarding,Tenderness Pelvic Clock 6-9 Guarding,Tenderness Pelvic Clock 9-12 Guarding,Tenderness Contraction Ability Voluntary Contraction Moderate Manual Muscle Testing Left 3 Manual Muscle Testing Right 3 Manual Muscle Testing Anterior 3 Manual Muscle Testing Posterior 3 Muscle Endurance (Seconds) 5 PT-OP-J Posture/Palpation/Skin Start: 07/30/22 12:59 Freq: Status: Active Protocol: Document 07/30/22 17:05 [facility] (Rec: 08/04/22 17:20 [facility] [id number]) Palpation Assessment Location B low back Palpation Location bilateral lumbar paraspinals Palpation Findings Muscle Guarding PT-OP-Q Treatments Start: 07/30/22 12:59 Freq: Status: Active Protocol: Document 08/27/22 11:29 [facility] (Rec: 08/27/22 12:19 [facility] [id number]) Therapeutic Exercises Other Exercises active hamstring stretch Reps/Minutes x 10 reps roshan pose Reps/Minutes hold 1-2 Manual Therapy Treatment Soft Tissue Mobilization MFR over the suprapubic fascia and lower left abdominal wall Comments pt tolerated this well but was tender on the left side of the abdominal wall. SHe noted after last visit she did feel things were looser to her MFR techniques for the pelvic floor Comments MFR techniques for the levator ani B, left side of the levator ani is tighter than the right side. Pt was tender but was able to relax with manual therapy work. I also worked on the ischium on the left side due to tightness Self-Care/Home Management Treatment Education Patient Education Home Exercise Program,Pain Management Other Education pt was educated active hamstring stretch and roshan pose stretch for HEP, diaphragamatic breathing in the legs up the wall position to relax the pelvic floor. PT-OP-T Assessment and Plan Start: 07/30/22 12:59 Freq: Status: Active Protocol: Document 08/27/22 11:29 [facility] (Rec: 08/27/22 13:11 [facility] [id number]) Physical Therapy Assessment Goals 3 Impairment elevated tone and guarding of the levator ani muscles Assisted Goal (LTG) Re is able to relax her pelvic floor at rest to baseline on EMG biofeedback. LTG Duration 12 weeks 2 Impairment poor diaphragmatic breathing excursion with pelvic floor tightness with every inhale Short Term Goal (STG) Re is able to perform good diaphragmatic breaths with pelvic floor relaxation upon her inhale STG Duration 4 weeks 1 Impairment pelvic pain, pelvic heaviness and pressure Short Term Goal (STG) pt is educated on pain relief techniques such as pelvic decompression, diaphragmatic breathing, gentle stretches for the pelvic floor STG Duration 4 weeks Assisted Goal (LTG) With manual therapy techniques Re notes a overall reduction in her pain levels from 6-9/10 to 3-4/10 . Her full goal would be to get to the point with her pain levels that she can discontinue the control working towards conception LTG Duration 12 weeks + Assessment Summary Assessment still more guarding on the left but much more relaxed on the right side today, Added in active hamstring stretch and roshan pose stretch to help release the posterior chain. Physical Therapy Plan Frequency and Duration Frequency of Treatment 1x/Week Duration of treatment (weeks) 12 Plan of Care Start Date 07/30/22 Plan of Care End Date 09/24/22 Therapeutic Interventions Therapeutic Interventions Home Exercise Program,Manual Therapy,Neuromuscular Re- education,Patient/Caregiver Education,Self-Care/Home Management,Soft Tissue Mobilization,Therapeutic Exercises Modalities Biofeedback Next Visit Focus/Plan Next Note Type Treatment Note Next Visit Plan try xs dilator with pt next visit as a self tool for MFR continue with MFR techniques, Manual lymphatic drainage, EMG biofeedback, continue manual techniques for pelvic floor relaxation
--- NOTE | 2022-09-03 17:09 | PT.OTN ---
Current Diagnoses Segmental and somatic dysfunction of pelvic region (09/03/22) Other specified conditions associated with female genital organs and menstrual cycle (09/03/22) Pelvic and perineal pain (09/03/22) Physical Therapy Treatment Note PT-OP-A Visit Information Start: 07/30/22 12:59 Freq: Status: Active Protocol: Document 09/03/22 16:02 [facility] (Rec: 09/03/22 17:08 [facility] [id number]) Out-Patient Physical Therapy Visit Information Visit Information Visit Type Treatment Note Visit Start Time 16:02 Visit Stop Time 16:47 Total Visit Minutes 45 Visit Number 5 PT-OP-B Current Condition Start: 07/30/22 12:59 Freq: Status: Active Protocol: Document 07/30/22 16:07 [facility] (Rec: 07/30/22 16:41 [facility] [id number]) Current Condition History of Current Condition Current Complaints pelvic pain, bladder urgency, decreaed ability to fully void History of Current Condition pt has had pelvic pain since she got her first period, she was put on control when she was 15. She went off the control last year as she wants to have a baby, she started having a lot of pain, she experienced lengthy periods, she was diagnosed with polycystic ovarian syndrome, endometretiosis, pain can get so bad that walking can make her sick, she has engorged blood vessels in her uterus and pelvic congestion syndrome She has 13 cycts on both of her ovaries SHe did go back on control x 5 months ago and periods have been more regulated SHe had a mass on her uterus in 2016 and they went in and cleaned it all up. She feels pelvic pressure and heaviness and so much pressure This last year she started getting rectal spasms as well as in her vaginal canal. Sometimes the spasms were more on the left side. She has irratible bowel with diarhea She feels like she can't fully empty her bladder She has a strong urge to void and she feels like her bladder is very small. 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 be stripped last june Treatment Goals Patient/Caregiver Goals pts goals are to reduce pain and improve function Prior Functional Status Baseline Function- ADL's Independent Baseline Function- Mobility Independent PT-OP-C Subjective Start: 07/30/22 12:59 Freq: Status: Active Protocol: Document 09/03/22 16:02 [facility] (Rec: 09/03/22 17:08 [facility] [id number]) OP-PT Subjective Patient Comments Patient Comments pt went bowling and pulled her left side but she is feeling better now, she has had some pain on her left side, she has bloating and feels like she could start her rocky PT-OP-F Manual Assessment Start: 07/30/22 12:59 Freq: Status: Active Protocol: Document 07/30/22 17:05 [facility] (Rec: 08/04/22 17:20 [facility] [id number]) Manual Assessments Soft Tissue Assessment Soft Tissue Mobility Assessment myofascial restrictions in the region of the diaphragm with poor diaphragmatic excursion levator ani guarding bilaterally, tightness of the suprapubic fascia, lumbar paraspinal tightness and guarding PT-OP-I Pelvic Floor Start: 07/30/22 12:59 Freq: Status: Active Protocol: Document 07/30/22 17:05 [facility] (Rec: 08/04/22 17:20 [facility] [id number]) Pelvic Floor Assessment Urine Pelvic Floor Surgery No Pelvic Clock Pelvic Clock 12-3 Guarding,Tenderness Pelvic Clock 3-6 Guarding,Tenderness Pelvic Clock 6-9 Guarding,Tenderness Pelvic Clock 9-12 Guarding,Tenderness Contraction Ability Voluntary Contraction Moderate Manual Muscle Testing Left 3 Manual Muscle Testing Right 3 Manual Muscle Testing Anterior 3 Manual Muscle Testing Posterior 3 Muscle Endurance (Seconds) 5 PT-OP-J Posture/Palpation/Skin Start: 07/30/22 12:59 Freq: Status: Active Protocol: Document 07/30/22 17:05 [facility] (Rec: 08/04/22 17:20 [facility] [id number]) Palpation Assessment Location B low back Palpation Location bilateral lumbar paraspinals Palpation Findings Muscle Guarding PT-OP-Q Treatments Start: 07/30/22 12:59 Freq: Status: Active Protocol: Document 09/03/22 16:02 [facility] (Rec: 09/03/22 17:08 [facility] [id number]) Therapeutic Exercises Supine Exercises pelvic floor long holds Comments working on the letting go Manual Therapy Treatment Soft Tissue Mobilization MFR over the suprapubic fascia and lower left abdominal wall Comments pt tolerated this well but was tender on the left side of the abdominal wall. MFR techniques for the pelvic floor Comments MFR techniques for the levator ani B, left side of the levator ani is tighter than the right side. Pt was tender but was able to relax with manual therapy work. Self-Care/Home Management Treatment Education Patient Education Home Exercise Program,Pain Management Other Education pt was instructed in dilator use with size xs dilator PT-OP-T Assessment and Plan Start: 07/30/22 12:59 Freq: Status: Active Protocol: Document 09/03/22 16:02 [facility] (Rec: 09/03/22 17:08 [facility] [id number]) Physical Therapy Assessment Goals 3 Impairment elevated tone and guarding of the levator ani muscles [employer] Goal (LTG) Re is able to relax her pelvic floor at rest to baseline on EMG biofeedback. LTG Duration 12 weeks 1 Impairment pelvic pain, pelvic heaviness and pressure Short Term Goal (STG) pt is educated on pain relief techniques such as pelvic decompression, diaphragmatic breathing, gentle stretches for the pelvic floor STG Duration 4 weeks Long-Term Goal (LTG) With manual therapy techniques Re notes a overall reduction in her pain levels from 6-9/10 to 3-4/10 . Her full goal would be to get to the point with her pain levels that she can discontinue the control working towards conception LTG Duration 12 weeks + Assessment Summary Assessment Re is able to relax fully to baseline on EMG biofeedback , she is demonstrating improved ability to relax her pelvic floor Physical Therapy Plan Frequency and Duration Frequency of Treatment 1x/Week Duration of treatment (weeks) 12 Plan of Care Start Date 07/30/22 Plan of Care End Date 09/24/22 Next Visit Focus/Plan Next Note Type Treatment Note Next Visit Plan go through stretches for pelvic pain next visit, review how dilator release went this next week, manual therapy techniques
--- NOTE | 2022-09-23 16:55 | PT.OTN ---
Current Diagnoses Segmental and somatic dysfunction of pelvic region (09/23/22) Other specified conditions associated with female genital organs and menstrual cycle (09/23/22) Pelvic and perineal pain (09/23/22) Physical Therapy Treatment Note PT-OP-A Visit Information Start: 07/30/22 12:59 Freq: Status: Active Protocol: Document 09/23/22 10:36 [facility] (Rec: 09/23/22 11:18 [facility] [id number]) Out-Patient Physical Therapy Visit Information Visit Information Visit Type Treatment Note Visit Start Time 10:34 Visit Stop Time 11:15 Total Visit Minutes 41 Visit Number 6 PT-OP-B Current Condition Start: 07/30/22 12:59 Freq: Status: Active Protocol: Document 07/30/22 16:07 [facility] (Rec: 07/30/22 16:41 [facility] [id number]) Current Condition History of Current Condition Current Complaints pelvic pain, bladder urgency, decreaed ability to fully void History of Current Condition pt has had pelvic pain since she got her first period, she was put on control when she was 15. She went off the control last year as she wants to have a baby, she started having a lot of pain, she experienced lengthy periods, she was diagnosed with polycystic ovarian syndrome, endometretiosis, pain can get so bad that walking can make her sick, she has engorged blood vessels in her uterus and pelvic congestion syndrome She has 13 cycts on both of her ovaries SHe did go back on control x 5 months ago and periods have been more regulated SHe had a mass on her uterus in 2016 and they went in and cleaned it all up. She feels pelvic pressure and heaviness and so much pressure This last year she started getting rectal spasms as well as in her vaginal canal. Sometimes the spasms were more on the left side. She has irratible bowel with diarhea She feels like she can't fully empty her bladder She has a strong urge to void and she feels like her bladder is very small. 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 be stripped last june Treatment Goals Patient/Caregiver Goals pts goals are to reduce pain and improve function Prior Functional Status Baseline Function- ADL's Independent Baseline Function- Mobility Independent PT-OP-C Subjective Start: 07/30/22 12:59 Freq: Status: Active Protocol: Document 09/23/22 10:36 [facility] (Rec: 09/23/22 11:18 [facility] [id number]) OP-PT Subjective Patient Comments Patient Comments Pt notes her period started . SHe had a lot of clotting and really bad cramps. She had a appointment on the with her OB, she will get her control upped, she is waking up most days with a lot of pain. She is feeling like she may need the exploratory surgery for endometriosis as her pain levels continue to be severe despite being back on control Patient Reported Progress Same PT-OP-F Manual Assessment Start: 07/30/22 12:59 Freq: Status: Active Protocol: Document 07/30/22 17:05 [facility] (Rec: 08/04/22 17:20 [facility] [id number]) Manual Assessments Soft Tissue Assessment Soft Tissue Mobility Assessment myofascial restrictions in the region of the diaphragm with poor diaphragmatic excursion levator ani guarding bilaterally, tightness of the suprapubic fascia, lumbar paraspinal tightness and guarding PT-OP-I Pelvic Floor Start: 07/30/22 12:59 Freq: Status: Active Protocol: Document 07/30/22 17:05 [facility] (Rec: 08/04/22 17:20 [facility] [id number]) Pelvic Floor Assessment Urine Pelvic Floor Surgery No Pelvic Clock Pelvic Clock 12-3 Guarding,Tenderness Pelvic Clock 3-6 Guarding,Tenderness Pelvic Clock 6-9 Guarding,Tenderness Pelvic Clock 9-12 Guarding,Tenderness Contraction Ability Voluntary Contraction Moderate Manual Muscle Testing Left 3 Manual Muscle Testing Right 3 Manual Muscle Testing Anterior 3 Manual Muscle Testing Posterior 3 Muscle Endurance (Seconds) 5 PT-OP-J Posture/Palpation/Skin Start: 07/30/22 12:59 Freq: Status: Active Protocol: Document 07/30/22 17:05 [facility] (Rec: 08/04/22 17:20 [facility] [id number]) Palpation Assessment Location B low back Palpation Location bilateral lumbar paraspinals Palpation Findings Muscle Guarding PT-OP-Q Treatments Start: 07/30/22 12:59 Freq: Status: Active Protocol: Document 09/23/22 10:36 [facility] (Rec: 09/23/22 11:56 [facility] [id number]) Therapeutic Exercises Supine Exercises diaphragmatic breathing Reps/Minutes 2-3 minutes Manual Therapy Treatment Soft Tissue Mobilization MFR over the suprapubic fascia and lower left abdominal wall Mobilization Type Myofascial Release Intensity/Depth Moderate Body Position Hooklying Comments pt able to tolerate MFR today Self-Care/Home Management Treatment Education Patient Education Home Exercise Program,Pain Management Other Education all exercises pain relief techniques were reviewed today , pt will continue to work on these at home. PT-OP-T Assessment and Plan Start: 07/30/22 12:59 Freq: Status: Active Protocol: Document 09/23/22 10:36 [facility] (Rec: 09/23/22 11:56 [facility] [id number]) Physical Therapy Assessment Goals 3 Impairment elevated tone and guarding of the levator ani muscles [facility] Goal (LTG) Re is able to relax her pelvic floor at rest to baseline on EMG biofeedback. Pt is working on relaxed awareness of the pelvic floor muscles with her HEP LTG Duration 12 weeks 2 Impairment poor diaphragmatic breathing excursion with pelvic floor tightness with every inhale Short Term Goal (STG) Re is able to perform good diaphragmatic breaths with pelvic floor relaxation upon her inhale GOAL MET STG Duration 4 weeks 1 Impairment pelvic pain, pelvic heaviness and pressure Short Term Goal (STG) pt is educated on pain relief techniques such as pelvic decompression, diaphragmatic breathing, gentle stretches for the pelvic floor GOAL MET STG Duration 4 weeks [facility] Goal (LTG) With manual therapy techniques Re notes a overall reduction in her pain levels from 6-9/10 to 3-4/10 . Her full goal would be to get to the point with her pain levels that she can discontinue the control working towards conception NO CHANGE LTG Duration 12 weeks + Assessment Summary Assessment At this point Re is out of her insurance benefits for PT. She has been educated in pain management techniques for home. She will follow up with her MD at for further guidance as far as exploratory surgery goes for endometrosis . I would be happy to continue PT in the future for Re. Physical Therapy Plan Discharge Physical Therapy Discharge Reasons No Longer Attending PT Discharge Comments Pt is out of insurance benefits for PT at this time.
== END 2022-09-30 11:50 | disposition home or self-care (01) ==
LOC: PHYS 10:30
PROVIDERS: Family Provider Family Medicine; PCP Family Medicine
DX: R10.2 Pelvic and perineal pain (principal); M99.05 Segmental and somatic dysfunction of pelvic region; N94.89 Other specified conditions associated with female genital organs and menstrual cycle
CPT/HCPCS: 97112; 97140; 97161; 97535

== ENCOUNTER → 2023-03-31 12:48 | Outpatient (CLI) | payer OTHER, MEDICAID, SELFPAY ==
--- NOTE | 2023-03-31 12:49 | DI.US.S_ITS ---
PROCEDURE: US PERIPH VENOUS LOW EXTREM RT INDICATIONS: RIGHT CALF PAIN TECHNIQUE: Real-time imaging, as well as color and pulse Doppler interrogation, were performed of the lower extremity deep veins from the inguinal ligament to the popliteal fossa, with documentation of the visualized calf veins. COMPARISON: None. FINDINGS: The common femoral, femoral, popliteal, and the visualized calf veins are normally compressible, and free of intraluminal thrombus. Color and pulse Doppler demonstrate normal phasic intraluminal flow. There is normal augmentation response to distal compression maneuver. Area of the palpable abnormality corresponds to a thrombosed superficial varicose vein. IMPRESSION: 1. No findings of lower extremity deep venous thrombosis. 2. Superficial thrombophlebitis seen involving a varicose vein at the palpable abnormality in the right distal popliteal region. Approved by: Sunny Ramirez M.D. on 03/31/2023 at 13:40
== END ==
PROVIDERS: Family Provider Family Medicine; PCP Family Medicine; Referring Provider Student in an Organized Health Care Education/Training Program; Visit Provider Student in an Organized Health Care Education/Training Program
DX: I80.03 Phlebitis and thrombophlebitis of superficial vessels of lower extremities, bilateral (principal); I83.91 Asymptomatic varicose veins of right lower extremity; M79.661 Pain in right lower leg; M79.89 Other specified soft tissue disorders
CPT/HCPCS: 93971

== ENCOUNTER 2023-07-23 19:57 | Emergency (ER) | payer OTHER, MEDICAID, SELFPAY ==
[2023-07-23 20:03] VITALS: BP 142/88; PULSE 96; RESP 17; TEMP 36.3; O2SAT 100; BMI 20.9
--- NOTE | 2023-07-23 20:33 | ED.FALL ---
HPI - Fall General Chief Complaint: Fall Stated Complaint: Fell down RV stairs hit head, no thinners Time Seen by Provider: 07/23/23 20:33 Source: patient Mode of arrival: Ambulatory Limitations: no limitations History of Present Illness HPI Narrative: 37-year-old female history of mood disorder, PTSD with complaint of fall on Wednesday 4 days ago. Patient was walking out of her RV. She slipped her hand got stuck in the handle of the door way but she fell backwards striking her lower buttock region and back on the metal steps. She describes falling down approximately 3 steps towards the ground. She states since then she is had some right hip pain with a burning sensation down the thigh. She is also had some pain down her right arm with pain with movement. She states she has general muscle aches everywhere. She had a headache immediately afterwards but not persistently. No loss of consciousness, no nausea no vomiting, no loss of bowel or bladder control, no weakness or difficulty with movement otherwise. She states she is been sore but able to walk and move normally. Patient does not take any anticoagulants. She takes and had a dose at 3:00 p.m.. She has been avoiding ibuprofen she was told it interacts with her duloxetine. Does have several antibiotic allergies. Patient has had some issues with her neck in the past but not to this extent. Related Data Previous Rx's Medication Instructions Recorded lorazepam 1 mg tablet 1 mg PO DAILY PRN dentist #10 tabs 02/24/23 drospirenone 3 mg-ethinyl 1 tab PO DAILY #84 tabs 06/03/23 estradiol 0.02 mg tablet (WINDY (28)) naloxone 4 mg/actuation nasal 4 mg intranasal Q2M PRN opioid 06/03/23 spray (Narcan) overdose #2 ea ondansetron 4 mg disintegrating 4 mg PO Q8H PRN nausea and 06/05/23 tablet vomiting #21 tabs duloxetine 20 mg capsule,delayed 40 mg (2 x 20 mg) PO DAILY anxiety 07/08/23 release #60 caps trazodone 50 mg tablet 50 mg PO DAILY #30 tabs 07/08/23 valacyclovir 1 gram tablet 2,000 mg (2 x 1 gram) PO Q12H PRN 07/13/23 (Valtrex) cold sores #30 tabs prednisone 10 mg tablets in a dose See Rx Instructions PO .COMPLEX 12/01/23 pack #10 ea Allergies Allergy/AdvReac Type Severity Reaction Status Date / Time Penicillins Allergy Severe SWOLLEN Verified 07/23/23 20:03 THROAT, HIVES - HOSPITALIZED nitrofurantoin Allergy Intermediate HIVES, Verified 07/23/23 20:03 INCR HR clindamycin AdvReac Severe C. Verified 07/23/23 20:03 DIFFICILE cephalexin AdvReac Intermediate Gastrointestinal Verified 07/23/23 20:03 Upset ciprofloxacin AdvReac Mild DIARRHEA Verified 07/23/23 20:03 Review of Systems Review of Systems ROS Unobtainable: All systems reviewed & are unremarkable except as noted in HPI and below Patient History Medical History Menometrorrhagia Hay fever Depression Anxiety Migraines (~2002) Carpal tunnel syndrome (~2007) Plantar warts (~2013) Chicken pox Anemia Vertigo (~2009) Recurrent sinusitis (~1987) History of recurrent ear infection (~1987) Ovarian cyst (~2000) Irregular menstrual cycle Human papilloma virus Abnormal Pap smear of cervix Frequent UTI (~2000) Cardiac arrhythmia (~1987) Surgical History Anesthesia History of dilatation and curettage Status post hysteroscopy (11/01/15) Social History marital status: unmarried,living together number of children: 0 household members: significant other lives independently: Yes housing: apartment education level: high school occupational status: employed current occupational exposures/hazards: No special mich needs: No Smoking Status: Former smoker Smoking Status: Former smoker Substance Use Type: does not use Exam Narrative Exam Narrative: GEN: Patient appears in mild distress. HEAD: No evidence of trauma, no raccoon/Díaz sign. NECK: Nontender, painless range of motion, trachea midline Negative for Nexus criteria, there is no midline line tenderness, distracting injury, altered mental status, neuro deficit, recent EtOH. Patient does have some mild soft tissue tenderness bilaterally but with full range of motion. EYES: PERRLA, EOMI ENT: External inspection normal, trachea is midline, TM's are normal no hemotypanum, Nares are clear, no septal hematoma, no dental or oral injury, airway is normal and with normal occlusion, No bony tenderness RESP: Chest is nontender and has symmetric movement, no ecchymosis, breath sounds are normal no crackles, wheezes or rales CVS: Heart sounds are normal, no murmur noted, No JVD. ABG/GI: Nontender, soft, normal bowel sounds, no distention, no organomegaly, pelvic rock is negative NEURO: Oriented AOx3, neuro is grossly intact, sensation and motor is normal all 4 extremities moving, cranial nerves II through XII are intact, GCS is 15 PSYCH: Normal mood and affect SKIN: Intact, warm and dry, no crepitus and without decubitus. No ecchymosis or abrasions to torso or back. BACK: No CVA tenderness, no vertebral tenderness, no step-off's, no crepitus EXT: Atraumatic, hips are nontender, no pedal edema, normal color and temperature, normal range of motion of extremities with normal tendon exam, 2+ pulses in all four extremities Initial Vital Signs Initial Vital Signs: Vital Signs Temperature 97.4 F L 07/23/23 20:03 Pulse Rate 96 H 07/23/23 20:03 Respiratory Rate 17 07/23/23 20:03 Blood Pressure 142/88 H 07/23/23 20:03 Pulse Oximetry 100 07/23/23 20:03 Oxygen Delivery Method Room Air 07/23/23 20:03 Scores Nexus Score for C-Spine Focal Neurologic deficit present: No Midline spinal tenderness present: No Altered level of conciousness present: No Intoxication present: No Distracting Injury Present: No Nexus Criteria for C-spine: 0 Course Orders Ordered: Discontinued Medications Prednisone (Prednisone 20 Mg Tablet) 40 mg PO NOW ONE Stop: 07/23/23 21:11 Last Admin: 07/23/23 21:15 Dose: 40 mg Documented By: SB Vital Signs Vital signs: Vital Signs - 8 hr 07/23/23 20:03 Temperature 97.4 F L Pulse Rate 96 H Respiratory Rate 17 Blood Pressure 142/88 H Pulse Oximetry 100 Oxygen Delivery Method Room Air MDM - Fall MDM Narrative Medical decision making narrative: 37-year-old female who had a fall down 3 steps hand got stuck in a handle to her door and fell backwards bumping down 3 steps to the ground. Patient has had some persistent burning sensation over the right thigh as well as pain down her right arm no weakness no other loss of sensation. No loss of bowel or bladder control. Patient is otherwise neurologically intact with normal exam. Patient clinically cleared for C-spine. Discussed with patient will do short course of medication she wished to avoid NSAIDs. We discussed trying gabapentin for nerve pain but she was anxious and prefers to take steroids. We did discuss that steroids can be rough on the stomach which is 1 of the reasons to avoid NSAIDs per the patient and her medication interaction. Discussed she can still continue Tylenol as needed. Discharge Plan Departure Patient Disposition: Home Clinical Impression: Low back strain, Arm pain, right Activity Restrictions/Additional Instructions: Follow-up with your physician for recheck in the next 7-10 days if symptoms are continuing to persist. You can use moist heat to the affected area several times daily for 20 minutes. You may continue Tylenol up to a 1000 mg every 6 hours as needed. Steroids are sometimes for nerve pain, they can be quite hard on the stomach and have similar risks to NSAIDs in terms of bleeding so take medication with food. Prescription sent to [facility] in [place] Please return for loss of bowel or bladder control, new weakness, loss of sensation inability to lift or move your extremities, loss of consciousness, persistent vomiting or other new or concerning changes. Prescriptions: New prednisone 10 mg tablets,dose pack See Rx Instructions .ROUTE .COMPLEX Qty: 10 0RF Rx Instructions: Take 4 tablets p.o. x1 day, then 3 tablets p.o. x1 day, then 2 tablets p.o. x1 day, then 1 tablet p.o. x1 day No Action drospirenone-ethinyl estradiol [WINDY (28)] 3-0.02 mg tablet 1 tab PO DAILY Qty: 84 0RF naloxone [Narcan] 4 mg/actuation spray,non-aerosol 4 mg intranasal Q2M PRN (Reason: opioid overdose) Qty: 2 0RF Rx Instructions: spray 1 dose into ONE nostril; alternate nostrils w each dose until help arrives duloxetine 20 mg capsule,delayed release(DR/EC) 40 mg PO DAILY Qty: 60 3RF trazodone 50 mg tablet 50 mg PO DAILY Qty: 30 3RF lorazepam 1 mg tablet 1 mg PO DAILY PRN (Reason: dentist) Qty: 10 0RF ondansetron 4 mg tablet,disintegrating 4 mg PO Q8H PRN (Reason: nausea and vomiting) Qty: 21 0RF valacyclovir [Valtrex] 1 gram tablet 2,000 mg PO Q12H PRN (Reason: cold sores) Qty: 30 2RF Rx Instructions: Take 2 tabs every 12 hours x 1 day as needed for cold sores Referrals: Samantha Pierce MD [Primary Care Provider] - Stand Alone Forms: Patient Portal/API, Work Release Note
[2023-07-23] MEDS: predniSONE 20 MG TABLET 40 MG PO (21:15)
== END 2023-07-23 21:27 | disposition home or self-care (01) ==
PROVIDERS: Emergency Provider Emergency Medicine; Family Provider Family Medicine; PCP Student in an Organized Health Care Education/Training Program
DX: M79.601 Pain in right arm (principal); S39.012A Strain of muscle, fascia and tendon of lower back, initial encounter; W10.8XXA Fall (on) (from) other stairs and steps, initial encounter; Y93.89 Activity, other specified; Y92.818 Other transport vehicle as the place of occurrence of the external cause
CPT/HCPCS: 99283

== ENCOUNTER → 2023-07-28 09:54 | Outpatient (CLI) | payer OTHER, MEDICAID, SELFPAY ==
--- NOTE | 2023-07-28 09:56 | DI.RAD.S_ITS ---
PROCEDURE: XR CERVICAL SPINE 2V OR 3V INDICATIONS: Back injury TECHNIQUE: 3 view(s) of the cervical spine were acquired. COMPARISON: None. FINDINGS: Bones: No fractures or dislocations to the T1 level. The lateral masses of C1 appear intact on the odontoid view. No suspicious bony lesions. Mild hypertrophic facet joints noted in lower cervical spine Soft tissues: No prevertebral soft tissue swelling. IMPRESSION: No displaced fracture or traumatic subluxation. Lower cervical spine arthropathy Approved by: Giacomo Blair M.D. on 07/28/2023 at 17:40
--- NOTE | 2023-07-28 09:56 | DI.RAD.S_ITS ---
PROCEDURE: XR LUMBAR SPINE 2-3V INDICATIONS: Back injury TECHNIQUE: 3 views of the lumbar spine were acquired. COMPARISON: None. FINDINGS: Bones: 5 [id number] vertebrae are present. There is normal bony alignment. No vertebral body compression fractures. No suspicious bony lesions. Soft tissues: Overlying bowel gas pattern is normal. No suspicious soft tissue calcifications. IMPRESSION: No acute bony abnormality. Approved by: Giacomo Blair M.D. on 07/28/2023 at 17:41
== END ==
PROVIDERS: Family Provider Family Medicine; PCP Student in an Organized Health Care Education/Training Program; Referring Provider Family Medicine; Visit Provider Family Medicine
DX: S39.012A Strain of muscle, fascia and tendon of lower back, initial encounter (principal); R52 Pain, unspecified; M47.812 Spondylosis without myelopathy or radiculopathy, cervical region
CPT/HCPCS: 72040; 72100

== ENCOUNTER → 2023-09-09 14:37 | Outpatient (CLI) | payer OTHER, MEDICAID, SELFPAY ==
--- NOTE | 2023-09-09 14:39 | DI.RAD.S_ITS ---
PROCEDURE: XR HIP W PEL IF DONE SARA MIN 4V INDICATIONS: Hip pain TECHNIQUE: AP pelvis with lateral view(s) of the left hip(s). COMPARISON: None. FINDINGS: Bones: No fractures or dislocations. Pelvic ring appears intact. No suspicious bony lesions. Soft tissues: The visualized bowel gas pattern is normal. No suspicious soft tissue calcifications. IMPRESSION: No acute bony abnormality. Dictated by: Charley Champagne M.D. on 09/09/2023 at 16:51 Approved by: Charley Champagne M.D. on 09/09/2023 at 16:52
== END ==
PROVIDERS: Family Provider Family Medicine; PCP Student in an Organized Health Care Education/Training Program; Referring Provider Anesthesiology; Visit Provider Anesthesiology
DX: M25.551 Pain in right hip (principal); M25.552 Pain in left hip; R20.2 Paresthesia of skin; M54.2 Cervicalgia; M79.18 Myalgia, other site; M47.812 Spondylosis without myelopathy or radiculopathy, cervical region; M25.511 Pain in right shoulder; M25.512 Pain in left shoulder; G89.29 Other chronic pain
CPT/HCPCS: 73522; 99214

== ENCOUNTER → 2023-09-27 13:50 | Outpatient (CLI) | payer OTHER, MEDICAID, SELFPAY ==
[2023-09-27 14:34] LABS: Add Manual Diff / Slide Review NO; Basophils Absolute Auto 100 /uL (0-100); Basophils Percent Auto 0.8 % (0-2); Eosinophils Absolute Auto 100 /uL (0-450); Eosinophils Percent Auto 2.1 % (2-4); Hematocrit 34.2 % (36-46); Hemoglobin 11.7 g/dL (12.0-16.0); Lymphocytes Absolute Auto 2100 /uL (1100-4500); Lymphocytes Percent Auto 30.6 % (25-40); Mean Corpuscular HGB Conc 34.2 % (30-36); Mean Corpuscular Hemoglobin 30.1 PG (26-34); Mean Corpuscular Volume 88.1 fL (80-100); Monocytes Absolute Auto 400 /uL (0-900); Monocytes Percent Auto 5.3 % (3-14); Neutrophils Absolute Auto 4100 /uL (1500-7000); Neutrophils Percent Auto 61.2 % (50-75); Platelet Count 264 X10^3/uL (150-400); Red Blood Cell Count 3.89 X10^6/uL (4.0-5.2); Red Cell Distribution Width 12.4 % (11.6-14.8); White Blood Cell Count 6.8 X10^3/uL (4.5-11.0)
[2023-09-27 15:21] LABS: TSH w/ Reflex to FT4 0.91 uIU/mL (0.47-4.68)
[2023-09-27 16:33] LABS: Hep C Virus Ab w/Reflex Quant NEGATIVE s/c (NEGATIVE)
[2023-09-28 19:16] LABS: Cholesterol HDL Ratio 2.2 ratio (0.0-4.4); Cholesterol,Total 140 mg/dL (100-199); HDL Cholesterol 63 mg/dL (>39); LDL Cholesterol Cal 58 mg/dL (0-99); Triglycerides 105 mg/dL (0-149); VLDL Cholesterol Cal 19 mg/dL (5-40)
== END ==
LOC: LAB 13:51
PROVIDERS: Family Provider Family Medicine; PCP Student in an Organized Health Care Education/Training Program; Referring Provider Nurse Practitioner Family; Visit Provider Nurse Practitioner Family
DX: Z13.1 Encounter for screening for diabetes mellitus (principal); Z13.220 Encounter for screening for lipoid disorders; Z11.59 Encounter for screening for other viral diseases; G47.00 Insomnia, unspecified
CPT/HCPCS: 36415; 80061; 84443; 85025; 86803

== ENCOUNTER → 2024-01-06 11:58 | Outpatient (CLI) | payer OTHER, MEDICAID, SELFPAY ==
[2024-01-06 13:04] LABS: Erythrocyte Sedimentation Rate 6 MM/HR (0-20)
[2024-01-07 13:35] LABS: C-Reactive Protein Quant < 0.5 mg/dL (<1.0)
[2024-01-07 13:38] LABS: Rheumatoid Factor < 8.6 IU/mL (<12.0)
== END ==
PROVIDERS: Family Provider Family Medicine; PCP Student in an Organized Health Care Education/Training Program; Referring Provider Anesthesiology; Visit Provider Anesthesiology
DX: R52 Pain, unspecified (principal)
CPT/HCPCS: 36415; 85651; 86038; 86140; 86200; 86430

== ENCOUNTER 2024-01-25 19:23 | Emergency (ER) | payer OTHER, MEDICAID, SELFPAY ==
[2024-01-25 19:45] VITALS: BP 132/87; PULSE 83; RESP 16; TEMP 36.9; O2SAT 100
--- NOTE | 2024-01-25 23:02 | ED.EXTPRO ---
HPI - Extremity Problem General Chief complaint: Extremity Problem,Nontraumatic Stated complaint: poss blood clot rt leg Time Seen by Provider: 01/25/24 22:44 Source: patient Mode of arrival: Ambulatory History of Present Illness HPI Narrative: Patient is a 38-year-old female with a specific injury here for evaluation right lower extremity pain. Initially she reported that she had a DVT within the past year but was not treated with any antibiotics. She stated this was diagnosed by an ultrasound from the walk-in clinic. She denies chest pain shortness of breath. No skin changes. Stated that the pain started in her right ankle and goes up front of her right leg than behind her right knee and then up to her lower back on the right. No fevers. No swelling. She has had vein stripping in this leg in the past. Related Data Home Medications Medication Instructions Recorded Confirmed norethindrone (contraceptive) 0.35 0.35 mg PO DAILY 10/29/23 01/17/24 mg tablet (Deblitane) Previous Rx's Medication Instructions Recorded ondansetron 4 mg disintegrating 4 mg PO Q8H PRN nausea and 06/05/23 tablet vomiting #21 tabs valacyclovir 1 gram tablet 2,000 mg (2 x 1 gram) PO Q12H PRN 07/13/23 (Valtrex) cold sores #30 tabs cyclobenzaprine 5 mg tablet 5 mg PO .nightly PRN #30 tabs 09/10/23 duloxetine 60 mg capsule,delayed 60 mg PO DAILY #30 caps 10/29/23 release trazodone 50 mg tablet 50 mg PO DAILY #30 tabs 11/03/23 bupropion HCl 150 mg tablet,12 hr 150 mg PO DAILY #90 ea 11/11/23 sustained-release (Wellbutrin SR) lorazepam 1 mg tablet 1 mg PO DAILY PRN dentist #10 tabs 11/18/23 methocarbamol 500 mg tablet 500 mg PO TID PRN Neck pain #30 01/17/24 tabs methylprednisolone 4 mg tablets in See Rx Instructions PO PER PKG DIR 01/17/24 a dose pack (Medrol (Fabrizio)) Neck pain #21 ea Allergies Allergy/AdvReac Type Severity Reaction Status Date / Time Penicillins Allergy Severe SWOLLEN Verified 01/17/24 10:22 THROAT, HIVES - HOSPITALIZED tramadol Allergy Severe Palpitation Verified 01/17/24 10:22 s nitrofurantoin Allergy Intermediate HIVES, Verified 01/17/24 10:22 INCR HR clindamycin AdvReac Severe C. Verified 01/17/24 10:22 DIFFICILE cephalexin AdvReac Intermediate Gastrointestinal Verified 01/17/24 10:22 Upset ciprofloxacin AdvReac Mild DIARRHEA Verified 01/17/24 10:22 Review of Systems Constitutional Constitutional: Reports system reviewed and no additional complaints, except as documented Musculoskeletal Musculoskeletal: Reports system reviewed and no additional complaints, except as documented Integumentary/Breasts Skin/Breast: Reports system reviewed and no additional complaints, except as documented Neurologic Neurologic: Reports system reviewed and no additional complaints, except as documented Hematologic/Lymphatic On Anticoagulants: No Patient History Medical History Anemia, unspecified (11/02/11) Bilateral shoulder pain Cervical spondylosis Myofascial pain Facial paresthesia Hip pain Menometrorrhagia Hay fever Depression Anxiety Migraines (~2002) Carpal tunnel syndrome (~2007) Plantar warts (~2013) Chicken pox Anemia Vertigo (~2009) Recurrent sinusitis (~1987) History of recurrent ear infection (~1987) Ovarian cyst (~2000) Irregular menstrual cycle Human papilloma virus Abnormal Pap smear of cervix Frequent UTI (~2000) Cardiac arrhythmia (~1987) Surgical History Anesthesia History of dilatation and curettage Status post hysteroscopy (11/01/15) Social History marital status: unmarried,living together number of children: 0 household members: significant other lives independently: Yes housing: apartment education level: high school occupational status: employed current occupational exposures/hazards: No special mich needs: No Smoking Status: Former smoker Smoking Status: Former smoker Substance Use Type: does not use Exam Initial Vital Signs Initial Vital Signs: Vital Signs Temperature 98.5 F 01/25/24 19:45 Pulse Rate 83 01/25/24 19:45 Respiratory Rate 16 01/25/24 19:45 Blood Pressure 132/87 01/25/24 19:45 Pulse Oximetry 100 01/25/24 19:45 Oxygen Delivery Method Room Air 01/25/24 19:45 HENMT Head: normal to inspection and normocephalic Resp Effort & Inspection: normal respiratory effort Cardio Rate: regular rate GI Other: No lymphadenopathy in the right inguinal region. Extrem General: No edema Other: Her right ankles unremarkable. She describes the pain in the front anterior portion of the right adame. There is no abnormalities noted on the examined this area. She reports pain along the medial hamstring but no specific hamstring tendon tenderness. Scores Wells' Criteria for DVT Active Cancer (Treatment within 6 months): No Bedridden recently >3 days or major surgery within 4 weeks: No Calf Swelling >3cm compared to other leg: No Collateral (nonvericose) superficial veins present: No Entire leg swollen: No Localized tenderness along the deep vein system: Yes Pitting edema, confined to symtomatic leg: No Paralysis, paresis, or recent plaster immobilization of ext: No Previously documented DVT: No Alternative dx to DVT as likely or more likely: Yes Henry' criteria for DVT: -1 Course Orders Ordered: ED Orders 01/25/24 23:40 Basic Metabolic Panel Stat Complete Blood Count AUTO DIFF Stat D Dimer Stat Vital Signs Vital signs: Vital Signs - 8 hr 01/26/24 00:46 Pulse Rate 80 Respiratory Rate 18 Blood Pressure 130/80 Pulse Oximetry 97 Oxygen Delivery Method Room Air MDM - Extremity (Nontraumatic) Medical Records Attestation: I reviewed the patient's medical records. Lab Data 01/25/24 23:40 01/25/24 23:40 Labs: Lab Results 01/25/24 Range/Units 23:40 WBC 8.7 (4.5-11.0) X10^3/uL RBC 4.07 (4.0-5.2) X10^6/uL Hgb 12.3 (12.0-16.0) g/dL Hct 36.5 (36-46) % MCV 89.8 (80-100) fL MCH 30.2 (26-34) PG MCHC 33.7 (30-36) % RDW 13.6 (11.6-14.8) % Plt Count 308 (150-400) X10^3/uL Neut % (Auto) 55.1 (50-75) % Lymph % (Auto) 32.3 (25-40) % Arthur % (Auto) 9.2 (3-14) % Eos % (Auto) 2.3 (2-4) % Baso % (Auto) 1.1 (0-2) % Neut # (Auto) 4800 (0373-6458) /uL Lymph # (Auto) 2800 (7564-5271) /uL Arthur # (Auto) 800 (0-900) /uL Eos # (Auto) 200 (0-450) /uL Baso # (Auto) 100 (0-100) /uL D-Dimer 441 (<500) ng/ml Sodium 137 (137-145) mmol/L Potassium 3.6 (3.4-5.1) mmol/L Chloride 105 (98-107) mmol/L Carbon Dioxide 28 (22-32) mmol/L BUN 7 (7-17) mg/dL Creatinine 0.58 (0.52-1.04) mg/dL Estimated GFR > 60 (>60) mL/min BUN/Creatinine Ratio 12.1 (6-22) Glucose 90 (70-100) mg/dL Calcium 9.0 (8.4-10.2) mg/dL MDM Narrative Medical decision making narrative: Review of the patient's medical record shows that at the end of last year she was diagnosed with a superficial clot in the right lower extremity not eat DVT. This would explain why she was not treated with anticoagulation he has a low risk Wells score. Her D-dimer is negative. There was no signs of infection. She has no swelling. The discomfort that she is having does not follow a specific nerve root distribution which would make a lumbar radiculopathy unlikely. I discussed all this with the patient. Potentially still could be muscular in origin. Was no indication for further radiologic studies or admission to the hospital or antibiotics or anticoagulation. Will discharge patient home with instructions follow up with the primary doctor. She was given return precautions. She expressed understanding and agreement. Discharge Plan Departure Patient Disposition: Home Clinical Impression: Leg pain, right Activity Restrictions/Additional Instructions: Continue to take all of your medications as directed. Keep all of your scheduled medical appointments. Return to the emergency department for new or worsening symptoms. Prescriptions: No Action norethindrone (contraceptive) [Deblitane] 0.35 mg tablet 0.35 mg PO DAILY duloxetine 60 mg capsule,delayed release(DR/EC) 60 mg PO DAILY Qty: 30 3RF bupropion HCl [Wellbutrin SR] 150 mg tablet sustained-release 12 hr 150 mg PO DAILY Qty: 90 2RF methocarbamol 500 mg tablet 500 mg PO TID PRN (Reason: Neck pain) Qty: 30 0RF methylprednisolone [Medrol (Fabrizio)] 4 mg tablets,dose pack See Rx Instructions PO PER PKG DIR Qty: 21 0RF Rx Instructions: PO PER PKG DIR for 6 days ondansetron 4 mg tablet,disintegrating 4 mg PO Q8H PRN (Reason: nausea and vomiting) Qty: 21 0RF valacyclovir [Valtrex] 1 gram tablet 2,000 mg PO Q12H PRN (Reason: cold sores) Qty: 30 2RF Rx Instructions: Take 2 tabs every 12 hours x 1 day as needed for cold sores cyclobenzaprine 5 mg tablet 5 mg PO .nightly PRN Qty: 30 6RF Rx Instructions: PRN - muscle pain trazodone 50 mg tablet 50 mg PO DAILY Qty: 30 0RF lorazepam 1 mg tablet 1 mg PO DAILY PRN (Reason: dentist) Qty: 10 0RF Referrals: Samantha Pierce MD [Primary Care Provider] - Stand Alone Forms: Patient Portal/API, Work Release Note
[2024-01-25 23:49] LABS: Add Manual Diff / Slide Review NO; Basophils Absolute Auto 100 /uL (0-100); Basophils Percent Auto 1.1 % (0-2); Eosinophils Absolute Auto 200 /uL (0-450); Eosinophils Percent Auto 2.3 % (2-4); Hematocrit 36.5 % (36-46); Hemoglobin 12.3 g/dL (12.0-16.0); Lymphocytes Absolute Auto 2800 /uL (1100-4500); Lymphocytes Percent Auto 32.3 % (25-40); Mean Corpuscular HGB Conc 33.7 % (30-36); Mean Corpuscular Hemoglobin 30.2 PG (26-34); Mean Corpuscular Volume 89.8 fL (80-100); Monocytes Absolute Auto 800 /uL (0-900); Monocytes Percent Auto 9.2 % (3-14); Neutrophils Absolute Auto 4800 /uL (1500-7000); Neutrophils Percent Auto 55.1 % (50-75); Platelet Count 308 X10^3/uL (150-400); Red Blood Cell Count 4.07 X10^6/uL (4.0-5.2); Red Cell Distribution Width 13.6 % (11.6-14.8); White Blood Cell Count 8.7 X10^3/uL (4.5-11.0)
[2024-01-25 23:59] LABS: BUN Creatinine Ratio 12.1 (6-22); Blood Urea Nitrogen 7 mg/dL (7-17); Carbon Dioxide 28 mmol/L (22-32); Chloride 105 mmol/L (98-107); Estimated Glomerular Filt Rate > 60 mL/min (>60); Glucose 90 mg/dL (70-100); HEMOLYSIS 21 (0-50); Potassium 3.6 mmol/L (3.4-5.1); Sodium 137 mmol/L (137-145)
[2024-01-26 00:04] LABS: D Dimer 441 ng/ml (<500)
[2024-01-26 00:46] VITALS: BP 130/80; PULSE 80; RESP 18; O2SAT 97
== END 2024-01-26 00:50 | disposition home or self-care (01) ==
PROVIDERS: Emergency Provider Emergency Medicine; Family Provider Family Medicine; PCP Student in an Organized Health Care Education/Training Program
DX: M79.604 Pain in right leg (principal)
CPT/HCPCS: 80048; 85025; 85379; 99281; 99283

== ENCOUNTER 2024-01-28 17:23 | Emergency (ER) | payer OTHER, MEDICAID, SELFPAY ==
[2024-01-28 17:27] VITALS: BP 119/83; PULSE 100; RESP 15; TEMP 36.8; O2SAT 99
--- NOTE | 2024-01-28 18:54 | ED_ITS ---
HPI - Female Genitourinary General Chief complaint: Vaginal Bleeding Stated complaint: possible prolapse Time Seen by Provider: 01/28/24 18:33 Source: patient Mode of arrival: Ambulatory History of Present Illness HPI Narrative: 38-year-old female presents for evaluation of possible pelvic prolapse. She states that she went to the restroom and noticed some bleeding and a ?bulge?. She looked between her legs with a mirror and noticed something protruding from her vagina. She called her nursing line, who recommended she be evaluated in the emergency department. Reports previous history of ?tight pelvic floor? and had to go through pelvic physical therapy. Related Data Home Medications Medication Instructions Recorded Confirmed norethindrone (contraceptive) 0.35 0.35 mg PO DAILY 10/29/23 01/17/24 mg tablet (Deblitane) Previous Rx's Medication Instructions Recorded ondansetron 4 mg disintegrating 4 mg PO Q8H PRN nausea and 06/05/23 tablet vomiting #21 tabs valacyclovir 1 gram tablet 2,000 mg (2 x 1 gram) PO Q12H PRN 07/13/23 (Valtrex) cold sores #30 tabs cyclobenzaprine 5 mg tablet 5 mg PO .nightly PRN #30 tabs 09/10/23 duloxetine 60 mg capsule,delayed 60 mg PO DAILY #30 caps 10/29/23 release trazodone 50 mg tablet 50 mg PO DAILY #30 tabs 11/03/23 bupropion HCl 150 mg tablet,12 hr 150 mg PO DAILY #90 ea 11/11/23 sustained-release (Wellbutrin SR) lorazepam 1 mg tablet 1 mg PO DAILY PRN dentist #10 tabs 11/18/23 methocarbamol 500 mg tablet 500 mg PO TID PRN Neck pain #30 01/17/24 tabs methylprednisolone 4 mg tablets in See Rx Instructions PO PER PKG DIR 01/17/24 a dose pack (Medrol (Fabrizio)) Neck pain #21 ea Allergies Allergy/AdvReac Type Severity Reaction Status Date / Time Penicillins Allergy Severe SWOLLEN Verified 01/28/24 17:27 THROAT, HIVES - HOSPITALIZED tramadol Allergy Severe Palpitation Verified 01/28/24 17:27 s nitrofurantoin Allergy Intermediate HIVES, Verified 01/28/24 17:27 INCR HR clindamycin AdvReac Severe C. Verified 01/28/24 17:27 DIFFICILE cephalexin AdvReac Intermediate Gastrointestinal Verified 01/28/24 17:27 Upset ciprofloxacin AdvReac Mild DIARRHEA Verified 01/28/24 17:27 Review of Systems Review of Systems Narrative: See HPI Patient History Medical History Anemia, unspecified (11/02/11) Bilateral shoulder pain Cervical spondylosis Myofascial pain Facial paresthesia Hip pain Menometrorrhagia Hay fever Depression Anxiety Migraines (~2002) Carpal tunnel syndrome (~2007) Plantar warts (~2013) Chicken pox Anemia Vertigo (~2009) Recurrent sinusitis (~1987) History of recurrent ear infection (~1987) Ovarian cyst (~2000) Irregular menstrual cycle Human papilloma virus Abnormal Pap smear of cervix Frequent UTI (~2000) Cardiac arrhythmia (~1987) Surgical History Anesthesia History of dilatation and curettage Status post hysteroscopy (11/01/15) Substance Use Type: does not use Exam Initial Vital Signs Initial Vital Signs: Vital Signs Temperature 98.2 F 01/28/24 17:27 Pulse Rate 100 H 01/28/24 17:27 Respiratory Rate 15 01/28/24 17:27 Blood Pressure 119/83 01/28/24 17:27 Pulse Oximetry 99 01/28/24 17:27 Oxygen Delivery Method Room Air 01/28/24 17:27 Const: Awake, alert, no acute distress, nontoxic appearing GI: Soft, nontender, nondistended, no rebound, no guarding : Community Development Aide present, cervix normal, scant amount of bleeding noted from cervical os, no lesions noted. No prolapse noted on exam Skin: Warm, Dry, intact, no rashes Neuro: AO x3, CN II-XII grossly intact, moves all extremities Course Vital Signs Vital signs: Vital Signs - 8 hr 01/28/24 17:27 Temperature 98.2 F Pulse Rate 100 H Respiratory Rate 15 Blood Pressure 119/83 Pulse Oximetry 99 Oxygen Delivery Method Room Air MDM - Female Genitourinary MDM Narrative Medical decision making narrative: Well-appearing patient presenting for concern pelvic prolapse. On exam there is no evidence of acute prolapse, speculum exam is normal with cervix in appropriate position. Patient informed of results of pelvic inspection, recommended OBGYN follow up if she continues to experience difficulties. Discharge Plan Departure Patient Disposition: Home Clinical Impression: Vaginal bleeding Instructions: DI for Pelvic Floor Dysfunction Activity Restrictions/Additional Instructions: I do not see any large prolapse of internal organs on pelvic exam today. Do the exercises taught with you by your pelvic floor therapist. Follow up with OBGYN as scheduled Prescriptions: No Action norethindrone (contraceptive) [Deblitane] 0.35 mg tablet 0.35 mg PO DAILY duloxetine 60 mg capsule,delayed release(DR/EC) 60 mg PO DAILY Qty: 30 3RF bupropion HCl [Wellbutrin SR] 150 mg tablet sustained-release 12 hr 150 mg PO DAILY Qty: 90 2RF methocarbamol 500 mg tablet 500 mg PO TID PRN (Reason: Neck pain) Qty: 30 0RF methylprednisolone [Medrol (Fabrizio)] 4 mg tablets,dose pack See Rx Instructions PO PER PKG DIR Qty: 21 0RF Rx Instructions: PO PER PKG DIR for 6 days ondansetron 4 mg tablet,disintegrating 4 mg PO Q8H PRN (Reason: nausea and vomiting) Qty: 21 0RF valacyclovir [Valtrex] 1 gram tablet 2,000 mg PO Q12H PRN (Reason: cold sores) Qty: 30 2RF Rx Instructions: Take 2 tabs every 12 hours x 1 day as needed for cold sores cyclobenzaprine 5 mg tablet 5 mg PO .nightly PRN Qty: 30 6RF Rx Instructions: PRN - muscle pain trazodone 50 mg tablet 50 mg PO DAILY Qty: 30 0RF lorazepam 1 mg tablet 1 mg PO DAILY PRN (Reason: dentist) Qty: 10 0RF Referrals: Samantha Pierce MD [Primary Care Provider] - Stand Alone Forms: Patient Portal/API, Work Release Note
[2024-01-28 19:10] VITALS: BP 119/76; PULSE 75; RESP 16; O2SAT 98
[2024-01-28 19:20] VITALS: BP 120/67; PULSE 85; RESP 15; TEMP 36.9; O2SAT 97
== END 2024-01-28 19:21 | disposition home or self-care (01) ==
PROVIDERS: Emergency Provider Emergency Medicine; Family Provider Family Medicine; PCP Student in an Organized Health Care Education/Training Program
DX: N93.9 Abnormal uterine and vaginal bleeding, unspecified (principal)
CPT/HCPCS: 99281; 99282

== ENCOUNTER → 2024-02-16 08:49 | Outpatient (CLI) | payer OTHER, MEDICAID, SELFPAY ==
--- NOTE | 2024-02-16 08:51 | DI.MRI.S_ITS ---
PROCEDURE: MR PELVIS WO/W CON INDICATIONS: clinical endometriosis, surgical planning TECHNIQUE: Coronal HASTE, sagittal breath-hold T2 FSE; axial T1 FSE with and without fat saturation through the pelvis. Optional long- and short-axis uterine nonbreath-hold T2 FSE through the uterus. Sagittal or axial dynamic VIBE during administration of contrast. Post-contrast axial or coronal VIBE/2-D FLASH with fat saturation from the iliac crests to the symphysis. Optional diffusion weighted imaging and ADC may be performed. COMPARISON: [facility] [place] [facility], CT, CT ABDOMEN PELVIS WITH CONTRAST, 12/01/2023, 14:46. FINDINGS: Image quality: Excellent. Uterus: Uterus is normal in size. Endometrium is normal in thickness. Junctional zone is normal in thickness at 12 mm or less. Adnexa: Both ovaries are normal in size, without suspicious cystic or solid lesions. Urinary system: Bladder wall is normal in thickness. Distal ureters are non distended. Urethra appears normal in morphology. Nodes and vessels: No pelvic or inguinal adenopathy by size criteria. Iliac vessels are normal in size. Bowel and peritoneum: No pathologic free pelvic fluid. Inferior colon and small bowel loops are normal in caliber. Soft tissues: No inguinal hernias. No findings of pelvic floor incompetence in the absence of provocation. Bones: Marrow demonstrates normal overall signal. IMPRESSION: No large endometrial deposits. Dictated by: Clark Mc M.D. on 02/16/2024 at 12:14 Approved by: Clark Mc M.D. on 02/16/2024 at 12:40
== END ==
LOC: MRI 08:50
PROVIDERS: Family Provider Family Medicine; PCP Student in an Organized Health Care Education/Training Program; Referring Provider Obstetrics & Gynecology; Visit Provider Obstetrics & Gynecology
DX: R10.2 Pelvic and perineal pain (principal); G89.29 Other chronic pain
CPT/HCPCS: 72197; A9579

== ENCOUNTER → 2024-03-14 15:26 | Outpatient (CLI) | payer OTHER, MEDICAID, SELFPAY ==
[2024-03-14 16:11] LABS: Add Manual Diff / Slide Review NO; Basophils Absolute Auto 100 /uL (0-100); Basophils Percent Auto 1.1 % (0-2); Eosinophils Absolute Auto 100 /uL (0-450); Eosinophils Percent Auto 0.9 % (2-4); Hematocrit 32.7 % (36-46); Hemoglobin 11.1 g/dL (12.0-16.0); Lymphocytes Absolute Auto 1600 /uL (1100-4500); Lymphocytes Percent Auto 27.7 % (25-40); Mean Corpuscular HGB Conc 34.1 % (30-36); Mean Corpuscular Hemoglobin 30.9 PG (26-34); Mean Corpuscular Volume 90.5 fL (80-100); Monocytes Absolute Auto 400 /uL (0-900); Monocytes Percent Auto 7.2 % (3-14); Neutrophils Absolute Auto 3700 /uL (1500-7000); Neutrophils Percent Auto 63.1 % (50-75); Platelet Count 250 X10^3/uL (150-400); Red Blood Cell Count 3.61 X10^6/uL (4.0-5.2); Red Cell Distribution Width 12.7 % (11.6-14.8); White Blood Cell Count 5.9 X10^3/uL (4.5-11.0)
[2024-03-14 17:35] LABS: Ferritin 19 ng/mL (6-137)
[2024-03-14 17:48] LABS: Iron 120 ug/dL (37-170)
[2024-03-14 17:58] LABS: Percent Iron Saturation 41 % (15-50); Total Iron Binding Capacity 295 ug/dL (265-497)
[2024-03-14 18:06] LABS: Free T4, Direct Thyroxine 1.07 ng/dL (0.78-2.19)
[2024-03-14 18:20] LABS: Thyroid Stimulating Hormone 0.461 uIU/mL (0.47-4.68)
[2024-03-14 18:56] LABS: Folate 13.2 ng/mL (2.76-20.0); Vitamin B12 262 pg/mL (239-931)
== END ==
PROVIDERS: Family Provider Family Medicine; PCP Student in an Organized Health Care Education/Training Program; Referring Provider Nurse Practitioner Family; Visit Provider Nurse Practitioner Family
DX: F32.A Depression, unspecified (principal); D64.9 Anemia, unspecified
CPT/HCPCS: 36415; 82607; 82728; 82746; 83540; 83550; 84439; 84443; 85025

== ENCOUNTER 2024-10-20 10:52 | Emergency (ER) | payer OTHER, SELFPAY ==
[2024-10-20 10:58] VITALS: BP 131/73; PULSE 84; RESP 14; TEMP 36.3; O2SAT 99; BMI 20.3
[2024-10-20 11:28] LABS: Ur Creatinine Normal (Normal); Ur Specific Gravity Normal (Normal); Urine pH Normal (Normal)
[2024-10-20 11:29] LABS: UR Morphine/Opiate cutoff 300 Negative (Negative); Urine Amphetamines Negative (Negative); Urine Barbiturates Negative (Negative); Urine Benzodiazepines Positive (Negative); Urine Cocaine Negative (Negative); Urine MDMA Negative (Negative); Urine Methadone Negative (Negative); Urine Methamphetamines Negative (Negative); Urine Oxycodone Negative (Negative); Urine Phencyclidine Negative (Negative); Urine Tetrahydrocannabinol Positive (Negative); Urine Tricyclic Antidepressant Negative (Negative)
[2024-10-20 11:30] LABS: Add Manual Diff / Slide Review NO; Basophils Absolute Auto 0 /uL (0-100); Basophils Percent Auto 0.8 % (0-2); Eosinophils Absolute Auto 0 /uL (0-450); Eosinophils Percent Auto 0.2 % (2-4); Hematocrit 36.1 % (36-46); Lymphocytes Absolute Auto 2800 /uL (1100-4500); Lymphocytes Percent Auto 42.7 % (25-40); Mean Corpuscular HGB Conc 33.4 % (30-36); Mean Corpuscular Hemoglobin 30.1 PG (26-34); Mean Corpuscular Volume 90.2 fL (80-100); Monocytes Absolute Auto 500 /uL (0-900); Monocytes Percent Auto 7.3 % (3-14); Neutrophils Absolute Auto 3200 /uL (1500-7000); Platelet Count 257 X10^3/uL (150-400); Red Cell Distribution Width 13.2 % (11.6-14.8); White Blood Cell Count 6.5 X10^3/uL (4.5-11.0)
[2024-10-20 11:43] LABS: COVID19 -Nasal RAPID Negative (Negative)
[2024-10-20 11:47] LABS: Acetaminophen < 10 ug/mL (10-30); Alanine Aminotransferase 19 IU/L (<35); Albumin 4.6 g/dL (3.5-5.0); Albumin Globulin Ratio 1.5 (1.0-2.8); Alkaline Phosphatase 43 U/L (38-126); Aspartate Aminotransferase 23 IU/L (14-36); BUN Creatinine Ratio 15.4 (6-22); Bilirubin Total 0.5 mg/dL (0.2-1.3); Blood Urea Nitrogen 10 mg/dL (7-17); Carbon Dioxide 27 mmol/L (22-32); Chloride 103 mmol/L (98-107); Estimated Glomerular Filt Rate > 60 mL/min (>60); Ethanol (ETOH) < 10 mg/dL; Glucose 91 mg/dL (70-100); HEMOLYSIS < 15 (0-50); Potassium 3.2 mmol/L (3.4-5.1); Salicylate < 1.0 mg/dL (<20); Sodium 139 mmol/L (137-145); Total Protein 7.6 g/dL (6.3-8.2)
[2024-10-20 11:55] LABS: Bacteria Urine Few (2-10); Culture Indicated Urine Cult Not Indicated; RBC Urine 30-100/HPF (0-5/HPF); Squamous Epithelial Cell Urine 5-10 /HPF (0-5/HPF); Urine Volume 10mL (spun); WBC Urine 0-1/HPF (0-5/HPF)
--- NOTE | 2024-10-20 11:55 | ED.PSYCH ---
HPI - Psych General Chief Complaint: Psychiatric Symptoms Stated Complaint: Doesn't want to be here anymore, needs help Time Seen by Provider: 10/20/24 11:16 Mode of arrival: Ambulatory History of Present Illness HPI Narrative: Patient is here voluntarily and desires inpatient care for her depression. Patient is sent here by primary care office for evaluation and treatment. Patient has had many years of depression and has had various types of medications without good effect. Last hospitalization was when she was in 8th grade at [facility]. Has SI without plan. Denies any ingestion of drugs or alcohol or medications to harm herself. No auditory or visual hallucinations. Related Data Home Medications Medication Instructions Recorded Confirmed drospirenone 3 mg-ethinyl 1 tab PO DAILY 03/30/24 10/20/24 estradiol 0.03 mg tablet cetirizine 10 mg tablet 10 mg DAILY 10/20/24 10/20/24 duloxetine 40 mg capsule,delayed 60 mg PO DAILY 10/20/24 10/20/24 release Previous Rx's Medication Instructions Recorded ondansetron 4 mg disintegrating 4 mg PO Q8H PRN nausea and 06/05/23 tablet vomiting #21 tabs valacyclovir 1 gram tablet 2,000 mg (2 x 1 gram) PO Q12H PRN 07/13/23 (Valtrex) cold sores #30 tabs trazodone 50 mg tablet 50 mg PO DAILY #30 tabs 11/03/23 lorazepam 1 mg tablet 1 mg PO DAILY PRN dentist #10 tabs 11/18/23 cyclobenzaprine 5 mg tablet 5 mg PO .nightly PRN #30 tabs 05/01/24 dextroamphetamine-amphetamine ER 5 5 mg PO DAILY #30 caps 08/04/24 mg 24hr capsule,extend release (Adderall XR) bupropion HCl 150 mg 24 hr tablet, 150 mg PO QAM #90 tabs 09/21/24 extended release Allergies Allergy/AdvReac Type Severity Reaction Status Date / Time Penicillins Allergy Severe SWOLLEN Verified 10/20/24 10:58 THROAT, HIVES - HOSPITALIZED tramadol Allergy Severe Palpitation Verified 10/20/24 10:58 s nitrofurantoin Allergy Intermediate HIVES, Verified 10/20/24 10:58 INCR HR clindamycin AdvReac Severe C. Verified 10/20/24 10:58 DIFFICILE cephalexin AdvReac Intermediate Gastrointestinal Verified 10/20/24 10:58 Upset ciprofloxacin AdvReac Mild DIARRHEA Verified 10/20/24 10:58 Review of Systems Review of Systems Narrative: GENERAL: Negative chills, fatigue, malaise, fever, sweats. HEENT: Negative sinus pain, ear pain, sore throat RESPIRATORY: Negative dyspnea, cough CARDIOVASCULAR: Negative chest pain, palpitations GASTROINTESTINAL: Negative nausea, vomiting, abdominal pain : Negative dysuria, frequency, hematuria MUSCULOSKELETAL: Negative muscle or bony pain SKIN: Negative rash, skin lesions NEUROLOGIC: Negative weakness, numbness Psychiatric: Positive SI without plan, positive anxiety, positive depression, negative hallucination ROS Unobtainable: All systems reviewed & are unremarkable except as noted in HPI and below Patient History Medical History (Updated 10/20/24 @ 14:11 by Kyle Oswald MD) Chronic pain in female pelvis Anemia, unspecified (11/02/11) Bilateral shoulder pain Cervical spondylosis Myofascial pain Facial paresthesia Hip pain Menometrorrhagia Hay fever Depression Anxiety Migraines (~2002) Carpal tunnel syndrome (~2007) Plantar warts (~2013) Chicken pox Anemia Vertigo (~2009) Recurrent sinusitis (~1987) History of recurrent ear infection (~1987) Ovarian cyst (~2000) Irregular menstrual cycle Human papilloma virus Abnormal Pap smear of cervix Frequent UTI (~2000) Cardiac arrhythmia (~1987) Surgical History Anesthesia History of dilatation and curettage Status post hysteroscopy (11/01/15) Social History marital status: unmarried,living together number of children: 0 household members: significant other lives independently: Yes housing: apartment education level: high school occupational status: employed current occupational exposures/hazards: No special mich needs: No Smoking Status: Former smoker Smoking Status: Former smoker Exam Narrative Exam Narrative: GENERAL: in no distress, not toxic not dyspneic HEAD: Normocephalic. EYES: Pupils equal round ENT: Mucous membranes moist. NECK: Trachea midline. CARDIOVASCULAR: Regular rate and rhythm RESPIRATORY: Clear to auscultation. Breath sounds equal bilaterally. No wheezes, rales, or rhonchi. GASTROINTESTINAL: Abdomen soft, non-tender EXTREMITIES: No gross deformities. BACK: No flank tenderness. NEURO: AOx4. Clear speech SKIN: Warm and dry PSYCH: Patient is cooperative. Not agitated or combative. Positive SI without plan, denies visual or auditory hallucinations. Is tearful at times on exam. No pressured speech Initial Vital Signs Initial Vital Signs: Vital Signs Temperature 97.4 F L 10/20/24 10:58 Pulse Rate 84 10/20/24 10:58 Respiratory Rate 14 10/20/24 10:58 Blood Pressure 131/73 10/20/24 10:58 Pulse Oximetry 99 10/20/24 10:58 Oxygen Delivery Method Room Air 10/20/24 10:58 Course Orders Ordered: Discontinued Medications Nicotine (Nicotine 21 Mg Patch) 21 mg TOP NOW ONE Stop: 10/20/24 13:14 Last Admin: 10/20/24 13:24 Dose: 21 mg Documented By: ROCHELLE Vital Signs Vital signs: Vital Signs - 8 hr 10/20/24 10:58 Temperature 97.4 F L Pulse Rate 84 Respiratory Rate 14 Blood Pressure 131/73 Pulse Oximetry 99 Oxygen Delivery Method Room Air MDM - Psych Lab Data 10/20/24 11:20 10/20/24 11:20 Labs: Lab Results 10/20/24 10/20/24 10/20/24 Range/Units 11:10 11:12 11:20 WBC 6.5 (4.5-11.0) X10^3/uL RBC 4.00 (4.0-5.2) X10^6/uL Hgb 12.0 (12.0-16.0) g/dL Hct 36.1 (36-46) % MCV 90.2 (80-100) fL MCH 30.1 (26-34) PG MCHC 33.4 (30-36) % RDW 13.2 (11.6-14.8) % Plt Count 257 (150-400) X10^3/uL Neut % (Auto) 49.0 L (50-75) % Lymph % (Auto) 42.7 H (25-40) % Dundy % (Auto) 7.3 (3-14) % Eos % (Auto) 0.2 L (2-4) % Baso % (Auto) 0.8 (0-2) % Neut # (Auto) 3200 (7845-6205) /uL Lymph # (Auto) 2800 (9013-3333) /uL Dundy # (Auto) 500 (0-900) /uL Eos # (Auto) 0 (0-450) /uL Baso # (Auto) 0 (0-100) /uL Sodium 139 (137-145) mmol/L Potassium 3.2 L (3.4-5.1) mmol/L Chloride 103 (98-107) mmol/L Carbon Dioxide 27 (22-32) mmol/L BUN 10 (7-17) mg/dL Creatinine 0.65 (0.52-1.04) mg/dL Estimated GFR > 60 (>60) mL/min BUN/Creatinine Ratio 15.4 (6-22) Glucose 91 (70-100) mg/dL Calcium 9.0 (8.4-10.2) mg/dL Total Bilirubin 0.5 (0.2-1.3) mg/dL AST 23 (14-36) IU/L ALT 19 (<35) IU/L Alkaline Phosphatase 43 (38-126) U/L Total Protein 7.6 (6.3-8.2) g/dL Albumin 4.6 (3.5-5.0) g/dL Globulin 3.0 (1.7-4.1) g/dL Albumin/Globulin Ratio 1.5 (1.0-2.8) TSH 0.985 (0.47-4.68) uIU/mL Free T4 1.27 (0.78-2.19) ng/dL Urine RBC 30-100/hpf H (0-5/HPF) Urine WBC 0-1/hpf (0-5/HPF) Ur Squamous Epith Cells 5-10 /hpf H (0-5/HPF) Urine Bacteria Few (2-10) H (None) Ur Culture Indicated? Cult not indicated Vol Urine Centrifuged 10ml (spun) Salicylates < 1.0 (<20) mg/dL U Opiates 300ng/mL cut Negative (Negative) Ur Oxycodone Screen Negative (Negative) Urine Methadone Screen Negative (Negative) Acetaminophen < 10 (10-30) ug/mL Ur Barbiturates Screen Negative (Negative) U Tricyclic Antidepress Negative (Negative) Ur Phencyclidine Scrn Negative (Negative) Ur Amphetamines Screen Negative (Negative) U Methamphetamines Scrn Negative (Negative) Ur MDMA Scrn (Ecstasy) Negative (Negative) U Benzodiazepines Scrn Positive H (Negative) Urine Cocaine Screen Negative (Negative) U Marijuana (THC) Screen Positive H (Negative) Urine pH Normal (Normal) Urine Specific [place] Normal (Normal) Ethyl Alcohol < 10 ( - 10) mg/dL Ur Creatinine Normal (Normal) SARS-CoV-2 (PCR) Negative (Negative) Point of Care Testing Test Results Negative Urine Dip Bedside Urine Glucose Negative Bedside Urine Bilirubin - Negative Bedside Urine Ketone - Negative Urine Specific [place] 1.015 Bedside Urine Occult Blood +++ Bedside Urine pH 6.0 Bedside Urine Protein + 30 Bedside Urine Urobilinogen - Negative Bedside Urine Nitrite - Negative Bedside Urine Leukocytes - Negative Esterase [facility] Narrative Medical decision making narrative: Patient is here voluntarily and desires inpatient care for her depression. Patient is sent here by primary care office for evaluation and treatment. Patient has had many years of depression and has had various types of medications without good effect. Last hospitalization was when she was in 8th grade at [facility]. Has SI without plan. Denies any ingestion of drugs or alcohol or medications to harm herself. No auditory or visual hallucinations. After history and exam, CBC CMP COVID screen drug screen urinalysis TSH alcohol Tylenol aspirin social work consult [facility] Medical records reviewed: No recent visit for this complaint Differential considered: Includes but not limited to SI depression anxiety Lab Test results independently reviewed as above. Pertinent findings: WBC 6.5 hemoglobin 12.0 sodium 139 potassium 3.2 BUN 10 creatinine 0.65 GFR greater than 60 glucose 91 AST 23 ALT 19 drug screen positive benzodiazepines positive marijuana alcohol negative COVID negative aspirin negative Tylenol negative Consultations: 12:00 p.m.. poultry process worker, Jeanine, has been working with patient for placement/inpatient, voluntary. Treatments: None indicated at this time Re-evaluations: 2:10 p.m.. Patient has been accepted to [facility] psychiatric care. Discussion: Appropriate for transfer for higher level care. Patient will need behavioral health services that we do not have here. Patient has been cooperative. Exam is reassuring. Patient is voluntary. Diagnosis: Depression/suicide ideation Discharge Plan Departure Patient Disposition: General Acute Hospital Clinical Impression: Suicidal ideation Depression Qualifiers: Depression Type: unspecified Qualified Code(s): F32.A - Depression, unspecified Prescriptions: No Action drospirenone-ethinyl estradiol 3-0.03 mg tablet 1 tab PO DAILY ondansetron 4 mg tablet,disintegrating 4 mg PO Q8H PRN (Reason: nausea and vomiting) Qty: 21 0RF valacyclovir [Valtrex] 1 gram tablet 2,000 mg PO Q12H PRN (Reason: cold sores) Qty: 30 2RF Rx Instructions: Take 2 tabs every 12 hours x 1 day as needed for cold sores trazodone 50 mg tablet 50 mg PO DAILY Qty: 30 0RF lorazepam 1 mg tablet 1 mg PO DAILY PRN (Reason: dentist) Qty: 10 0RF cyclobenzaprine 5 mg tablet 5 mg PO .nightly PRN Qty: 30 6RF Rx Instructions: PRN - muscle pain dextroamphetamine-amphetamine [Adderall XR] 5 mg capsule,extended release 24hr 5 mg PO DAILY Qty: 30 0RF bupropion HCl 150 mg tablet extended release 24 hr 150 mg PO QAM Qty: 90 0RF cetirizine 10 mg tablet 10 mg DAILY duloxetine 40 mg capsule,delayed release(DR/EC) 60 mg PO DAILY Referrals: Samantha Pierce MD [Primary Care Provider] -
--- NOTE | 2024-10-20 12:16 | CM.SWNOTE ---
ED SOILED LINEN DISTRIBUTOR Assessment SOILED LINEN DISTRIBUTOR - Videotape Operator Assessment SOILED LINEN DISTRIBUTOR/Videotape Operator Assessment Time Spent with Patient Start date 10/20/24 Visit Start Time 11:55 End date 10/20/24 Visit End Time 12:15 Total time Care Management spent on 20 minutes patient visit-in minutes Mental Health Screening Include Onset, Duration, Intensity Presenting Problem Patient presents to ED per recommendation from PCP due to concerns for patient's daily SI, passive thoughts of plans and ongoing Depression, current rx are not addressing symptoms. Patient endorses concern for being alone, stating she is not sure what she would do. I have nothing left to lose, I have lost everything. Patient also endorses concern for insomnia, poor eating, decreased interest in personal hygiene, patient states I don't care, none of it matters. Patient states she randomly got a tattoo and got her nipples pierced and states that this is not typical behavior. Patient is voluntary for inpatient treatment. Precipitating Event(s) Patient endorses SI to PCP during appt and patient is recommended to go to the ED. Patient endorses her dog of several years in January, patient states that she can't have kids and her dog was everything to her. Patient states her partner of 12 years recently broke up with her and she had to moved back in with her family and her brother tried to kick her out. Patient states that she has financial stress, she is worried she will lose her job, patient states that she recently had an allergic reaction and missed work. Patient Strengths Patient is seeking help, patient has some support from family. Current Behavioral Health Provider(s) Patient previously saw Include Facility, Provider, Ph. # Psychiatrists and MH therapist at [facility] and , but services ended in 2021, patient has not seen any provider since. Patient has hx of seeing several MH providers in the past and trying several rx. Per EMR, patient had adverse reaction to Zoloft, paxil and celexa. Patient has current rx for Buproprion HCl 150mg, dextroamphetamine-amphetamine ER 5 mg, duloxetine , & trazodone Psych. Hx Mental Health and Chemical Patient endorses hx of Dependency Depression, Anxiety, CPTSD, ADHD, self harm and SI. Patient endorses concern for maria elena and may have undiagnosed Bipolar. Patient endorses occasional ETOH use, vaping with nicotene and regular Marijuana edible use. Family Hx of Behavioral Abuse Patient was adopted, patient's biological mother used substances (cocaine and heroin ) while with patient. Psychiatric Hospitalizations (date(s)/ Patient was voluntary at location) [facility] at age 16 due to SI and self harm. Psychosocial information & Support Patient is 39 y/o female Systems currently residing with family in [place]. 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 Legal Concerns Legal Matters - Outstanding Issues None reported Mental Status Orientation (Person/Place/Time) A/Ox4 Stated Mood it's hard to find a reason to stay. Affect (Congruent with Mood?) dysthymic, tearful, congruent with mood. Thought Content - Specify/Describe Patient denies visual or Obsessions, Delusions, Hallucinations auditory hallucinations and denies concern for paranoia. Thought Processes (Nqbjrnr-Vxdkamvf-Rhzp coherent Gbtmcmzd-Ncialaid-Wyipuqcosj- Ofbnlqjjyjexwr-Xsyjpou-Mjmrfqvmhhxy- Thought Blocking) Speech (Yooeix-Ebnf-Vtxctbs-Rapid-Soft- normal Loud-Pressured) Motor (Jdswcu-Qlqzhgwpg-Uwbe-Other) normal Insight (Iutn-Xzbj-Cvmm/Limited) fair Judgement (Ueme-Vdad-Bzdw/Limited) fair Impulse Control (Adequate-Impaired) adequate during assessment. Patient has endorsed concern for her impulsiveness in recent weeks due to getting new tattoo and nipple piercings. Memory (Hunaltwnl-Bqyfek-Wsqeua, intact, not formally assessed Impaired-Intact) Concentration (Intact-Impaired) intact Attention (Intact-Impaired) intact Behavior (Appropriate-Inappropriate) appropriate Additional Comment patient presents as calm, cooperative and communicative. Risk Assessment Suicidal Ideation (Plan) Yes Homicidal Ideation (Plan) No Comment Patient denies HI. Patient endorses daily and increasing SI with intrusive thoughts. Patient states when she is in the car she thinks of driving into trees. Patient denies intent or plan to act on these thoughts but presents with concern that she might. 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 Patient states her brother by drug overdose and she states she could never hurt her family like that. Intervention Intervention SOILED LINEN DISTRIBUTOR enters triage to meet with patient, present in room is media production support manager. Patient endorses concern for increasing depression, daily SI and passive thoughts of plans. Patient states that she has been through a lot of life changes and recently lost her dog, broke up with buttermaker continuous churn boyfriend and had to move in with family which has been difficult to manage. Patient endorses that she is seeking voluntary inpatient hospitalization. It is the opinion of this SOILED LINEN DISTRIBUTOR that patient would be appropriate for and benefit from voluntary inpatient hospitalization for safety, crisis stabilization and medication management. SOILED LINEN DISTRIBUTOR reviews this with ED provider Dr. Oswald who indicates agreement and understanding. Plan RA Plan SOILED LINEN DISTRIBUTOR to seek voluntary inpatient placement for patient upon medical clearance . Jeanine Shi, COOLER CONVEYOR LOADER
[2024-10-20 13:05] LABS: Free T4, Direct Thyroxine 1.27 ng/dL (0.78-2.19)
[2024-10-20 13:19] LABS: Thyroid Stimulating Hormone 0.985 uIU/mL (0.47-4.68)
[2024-10-20] MEDS: NICOTINE 21 MG PATCH TOP (13:24)
--- NOTE | 2024-10-20 14:10 | CM.SWNOTE ---
ED PERSONAL LINES ACCOUNT EXECUTIVE Note PERSONAL LINES ACCOUNT EXECUTIVE calls [facility], it is reported that they have beds. PERSONAL LINES ACCOUNT EXECUTIVE faxes clinicals for review. PERSONAL LINES ACCOUNT EXECUTIVE calls [facility], it is reported that they have beds. PERSONAL LINES ACCOUNT EXECUTIVE faxes clinicals for review. Patricia at [facility] calls back and reports that patient is accepted by provider Dr. Dustin Sharp, with arrival time by 1800 or after 2100. Nurse to Nurse is [phone]. PERSONAL LINES ACCOUNT EXECUTIVE calls [facility] and schedules transport for 1435, PERSONAL LINES ACCOUNT EXECUTIVE informs [facility] of this transport time. PERSONAL LINES ACCOUNT EXECUTIVE calls [facility] regarding patient's acceptance at another facility. PERSONAL LINES ACCOUNT EXECUTIVE informs patient who indicates agreement and understanding. Plan: patient to transfer via BLS this afternoon to [facility] for voluntary inpatient hospitalization. Jeanine Shi, FINANCIAL COORDINATOR
[2024-10-20 14:24] VITALS: BP 128/78; PULSE 80; RESP 18; O2SAT 97
== END 2024-10-20 14:48 | disposition short-term general hospital (02) ==
PROVIDERS: Emergency Provider Emergency Medicine; Family Provider Family Medicine; PCP Student in an Organized Health Care Education/Training Program
DX: R45.851 Suicidal ideations (principal); F32.A Depression, unspecified
CPT/HCPCS: 36415; 80053; 80305; 80320; 80329; 81003; 81015; 81025; 84439; 84443; 85025; 87635; 99284; G0480

== ENCOUNTER 2025-01-15 17:03 | Emergency (ER) | payer OTHER, SELFPAY ==
[2025-01-15] VITALS (9 sets, daily range): BP systolic 124–143; BP diastolic 71–96; PULSE 65–93; RESP 17–35; TEMP 37; O2SAT 100; BMI 18.2
--- NOTE | 2025-01-15 19:39 | ED.SYNCOPE ---
HPI - Syncope General Chief Complaint: Dizziness Stated Complaint: Fainted this morning, body pain Time Seen by Provider: 01/15/25 19:01 History of Present Illness HPI narrative: 39-year-old female history of cardiac arrhythmia ADHD anxiety depression marijuana use PTSD recently had inpatient psychiatric hospitalization at [facility] as she experience psychosis secondary to high dose prednisone without tapering woke up today drenched in sweat and was getting up to open the door handle when she fell diagonally and passed out while at her friend's house. She denies headache, dizziness, blurred vision chest pain back pain but does complain of neck pain and shoulder pain at this time. She is under a lot of stress right now in homeless after being kicked out and disowned by her family her ex and her in-laws. Related Data Home Medications Medication Instructions Recorded Confirmed drospirenone 3 mg-ethinyl 1 tab PO DAILY 03/30/24 11/09/24 estradiol 0.03 mg tablet cetirizine 10 mg tablet 10 mg DAILY 10/20/24 11/09/24 duloxetine 40 mg capsule,delayed 60 mg PO DAILY 10/20/24 11/09/24 release Previous Rx's Medication Instructions Recorded ondansetron 4 mg disintegrating 4 mg PO Q8H PRN nausea and 06/05/23 tablet vomiting #21 tabs valacyclovir 1 gram tablet 2,000 mg (2 x 1 gram) PO Q12H PRN 07/13/23 (Valtrex) cold sores #30 tabs trazodone 50 mg tablet 50 mg PO DAILY #30 tabs 11/03/23 lorazepam 1 mg tablet 1 mg PO DAILY PRN dentist #10 tabs 11/18/23 cyclobenzaprine 5 mg tablet 5 mg PO .nightly PRN #30 tabs 05/01/24 dextroamphetamine-amphetamine ER 5 5 mg PO DAILY #30 caps 08/04/24 mg 24hr capsule,extend release (Adderall XR) bupropion HCl 150 mg 24 hr tablet, 150 mg PO QAM #90 tabs 09/21/24 extended release Allergies Allergy/AdvReac Type Severity Reaction Status Date / Time Penicillins Allergy Severe SWOLLEN Verified 11/09/24 15:39 THROAT, HIVES - HOSPITALIZED tramadol Allergy Severe Palpitation Verified 11/09/24 15:39 s nitrofurantoin Allergy Intermediate HIVES, Verified 11/09/24 15:39 INCR HR clindamycin AdvReac Severe C. Verified 11/09/24 15:39 DIFFICILE cephalexin AdvReac Intermediate Gastrointestinal Verified 11/09/24 15:39 Upset ciprofloxacin AdvReac Mild DIARRHEA Verified 11/09/24 15:39 Review of Systems Review of Systems ROS Unobtainable: All systems reviewed & are unremarkable except as noted in HPI and below Patient History Medical History (Updated 01/15/25 @ 23:07 by Antonio Banks DO) Chronic pain in female pelvis Anemia, unspecified (11/02/11) Bilateral shoulder pain Cervical spondylosis Myofascial pain Facial paresthesia Hip pain Menometrorrhagia Hay fever Depression Anxiety Migraines (~2002) Carpal tunnel syndrome (~2007) Plantar warts (~2013) Chicken pox Anemia Vertigo (~2009) Recurrent sinusitis (~1987) History of recurrent ear infection (~1987) Ovarian cyst (~2000) Irregular menstrual cycle Human papilloma virus Abnormal Pap smear of cervix Frequent UTI (~2000) Cardiac arrhythmia (~1987) Surgical History Anesthesia History of dilatation and curettage Status post hysteroscopy (11/01/15) Social History marital status: unmarried,living together number of children: 0 household members: significant other lives independently: Yes housing: apartment education level: high school occupational status: employed current occupational exposures/hazards: No special mich needs: No Smoking Status: Never smoker Smoking Status: Never smoker Exam Narrative Exam Narrative: GENERAL: [39] year old patient appears stated age. Well-developed patient, in mild distress. HEAD: Atraumatic. Normocephalic. EYES: Pupils equal round and reactive. Extraocular motions intact. No scleral icterus. No injection or drainage. ENT: Nose without bleeding, purulent drainage. Throat without erythema, tonsillar hypertrophy or exudate. Airway patent. NECK: Trachea midline. Non tender CARDIOVASCULAR: Regular rate and rhythm without murmurs, gallops, or rubs. RESPIRATORY: Clear to auscultation. Breath sounds equal bilaterally. No wheezes, rales, or rhonchi. GASTROINTESTINAL: Abdomen soft, non-tender, nondistended. EXTREMITIES: No edema or joint tenderness. BACK: Nontender without deformity or crepitance. No flank tenderness. NEURO: AOx3. GCS 15 nonfocal neuro exam SKIN: No rash or erythema of visible areas Initial Vital Signs Initial Vital Signs: Vital Signs Temperature 98.6 F 01/15/25 17:28 Pulse Rate 81 01/15/25 17:28 Respiratory Rate 20 01/15/25 17:28 Blood Pressure 126/92 H 01/15/25 17:28 Pulse Oximetry 100 01/15/25 17:28 Oxygen Delivery Method Room Air 01/15/25 17:28 Course Orders Ordered: ED Orders 01/15/25 17:34 Consult to MANAGER OF EXHIBITIONS AND COLLECTIONS - It Program Engagement Director Stat 01/15/25 19:30 Complete Blood Count AUTO DIFF Stat Comprehensive Metabolic Panel Stat D Dimer Stat Lipase Stat Magnesium Stat NT-proBNP (BNP-Adult 18+) Stat PTT Partial Thromboplastin Nelson Stat Prothrombin Time INR Stat Troponin & CK Cardiac Panel Stat 01/15/25 19:40 XR chest 1V Stat EKG-12 Lead Stat 01/15/25 19:46 CT cervical spine wo con Stat 01/15/25 20:25 Test Urine Stat Urine Drug Screen, Rapid Stat Urine Microscopic Stat Discontinued Medications Aspirin (Aspirin 81 Mg Chew Tab) 324 mg PO NOW ONE Stop: 01/15/25 19:40 Last Admin: 01/15/25 19:49 Dose: 324 mg Documented By: Lactated Ringer's (Lactated Ringers) 1,000 mls @ 1,000 mls/hr IV BOLUS ONE Stop: 01/15/25 20:41 Last Infusion: 01/15/25 21:01 Dose: Infused Documented By: Infusion: 01/15/25 21:00 Dose: Infused Documented By: Admin: 01/15/25 19:49 Dose: 1,000 mls/hr Documented By: Vital Signs Vital signs: Vital Signs - 8 hr 01/15/25 17:28 01/15/25 19:38 01/15/25 20:13 Temperature 98.6 F Pulse Rate 81 67 93 H Pulse Rate [Orthostatic Lying] Pulse Rate [Orthostatic Sitting] Pulse Rate [Orthostatic Standing] Respiratory Rate 20 35 H 23 Blood Pressure 126/92 H Blood Pressure [Orthostatic Lying] Blood Pressure [Orthostatic Sitting] Blood Pressure [Orthostatic Standing] Pulse Oximetry 100 100 100 Oxygen Delivery Method Room Air 01/15/25 20:30 01/15/25 20:30 01/15/25 21:00 Temperature Pulse Rate 76 65 Pulse Rate [Orthostatic Lying] Pulse Rate [Orthostatic Sitting] Pulse Rate [Orthostatic Standing] Respiratory Rate 23 21 Blood Pressure 138/82 Blood Pressure [Orthostatic Lying] Blood Pressure [Orthostatic Sitting] Blood Pressure [Orthostatic Standing] Pulse Oximetry 100 100 Oxygen Delivery Method 01/15/25 21:00 01/15/25 21:27 01/15/25 21:27 Temperature Pulse Rate 71 Pulse Rate [Orthostatic Lying] Pulse Rate [Orthostatic Sitting] Pulse Rate [Orthostatic Standing] Respiratory Rate 26 H Blood Pressure 124/74 132/71 Blood Pressure [Orthostatic Lying] Blood Pressure [Orthostatic Sitting] Blood Pressure [Orthostatic Standing] Pulse Oximetry 100 Oxygen Delivery Method 01/15/25 21:28 01/15/25 21:28 01/15/25 21:30 Temperature Pulse Rate 77 Pulse Rate [Orthostatic Lying] 66 Pulse Rate [Orthostatic Sitting] 76 Pulse Rate [Orthostatic Standing] 88 Respiratory Rate 22 Blood Pressure 141/92 H Blood Pressure [Orthostatic Lying] 132/71 Blood Pressure [Orthostatic Sitting] 143/96 H Blood Pressure [Orthostatic Standing] 138/87 Pulse Oximetry 100 Oxygen Delivery Method 01/15/25 21:30 01/15/25 21:30 01/15/25 22:00 Temperature Pulse Rate 67 66 Pulse Rate [Orthostatic Lying] Pulse Rate [Orthostatic Sitting] Pulse Rate [Orthostatic Standing] Respiratory Rate 17 25 H Blood Pressure 131/74 Blood Pressure [Orthostatic Lying] Blood Pressure [Orthostatic Sitting] Blood Pressure [Orthostatic Standing] Pulse Oximetry 100 100 Oxygen Delivery Method 01/15/25 22:00 Temperature Pulse Rate Pulse Rate [Orthostatic Lying] Pulse Rate [Orthostatic Sitting] Pulse Rate [Orthostatic Standing] Respiratory Rate Blood Pressure 128/78 Blood Pressure [Orthostatic Lying] Blood Pressure [Orthostatic Sitting] Blood Pressure [Orthostatic Standing] Pulse Oximetry Oxygen Delivery Method MDM - Syncope Lab Data 01/15/25 19:30 01/15/25 19:30 Labs: Lab Results 01/15/25 01/15/25 Range/Units 19:30 20:25 WBC 10.3 (4.5-11.0) X10^3/uL RBC 4.13 (4.0-5.2) X10^6/uL Hgb 12.4 (12.0-16.0) g/dL Hct 36.9 (36-46) % MCV 89.5 (80-100) fL MCH 30.0 (26-34) PG MCHC 33.5 (30-36) % RDW 12.8 (11.6-14.8) % Plt Count 250 (150-400) X10^3/uL Neut % (Auto) 72.5 (50-75) % Lymph % (Auto) 20.8 L (25-40) % Waller % (Auto) 5.4 (3-14) % Eos % (Auto) 0.3 L (2-4) % Baso % (Auto) 1.0 (0-2) % Neut # (Auto) 7400 H (5543-4423) /uL Lymph # (Auto) 2100 (4542-5903) /uL Waller # (Auto) 600 (0-900) /uL Eos # (Auto) 0 (0-450) /uL Baso # (Auto) 100 (0-100) /uL PT 11.8 (9.4-12.5) SECONDS INR 1.0 (0.9-1.3) APTT 34 (25.1-36.5) SECONDS D-Dimer < 215 (<500) ng/ml Sodium 137 (137-145) mmol/L Potassium 3.7 (3.4-5.1) mmol/L Chloride 106 (98-107) mmol/L Carbon Dioxide 24 (22-32) mmol/L BUN 10 (7-17) mg/dL Creatinine 0.53 (0.52-1.04) mg/dL Estimated GFR > 60 (>60) mL/min BUN/Creatinine Ratio 18.9 (6-22) Glucose 84 (70-99) mg/dL Calcium 9.3 (8.4-10.2) mg/dL Magnesium 1.8 (1.6-2.3) mg/dL Total Bilirubin 0.7 (0.2-1.3) mg/dL AST 20 (14-36) IU/L ALT 15 (<35) IU/L Alkaline Phosphatase 51 (38-126) U/L Total Creatine Kinase 29 L (30-135) U/L Troponin I < 0.012 (0.01-0.034) ng/mL NT-Pro-B Natriuret Pep 111 (<125) pg/mL Total Protein 7.0 (6.3-8.2) g/dL Albumin 4.4 (3.5-5.0) g/dL Globulin 2.6 (1.7-4.1) g/dL Albumin/Globulin Ratio 1.7 (1.0-2.8) Lipase 320 H (23-300) U/L Urine RBC 1-5/hpf D (0-5/HPF) Urine WBC 1-5/hpf (0-5/HPF) Ur Squamous Epith Cells 0-1 /hpf (0-5/HPF) Urine Bacteria None seen (None) Urine Mucus 1+ H (Negative) Ur Culture Indicated? Cult not indicated Vol Urine Centrifuged 10ml (spun) Urine Test Negative (Negative) U Opiates 300ng/mL cut Negative (Negative) Ur Oxycodone Screen Negative (Negative) Urine Methadone Screen Negative (Negative) Ur Barbiturates Screen Negative (Negative) U Tricyclic Antidepress Negative (Negative) Ur Phencyclidine Scrn Negative (Negative) Ur Amphetamines Screen Negative (Negative) U Methamphetamines Scrn Negative (Negative) Ur MDMA Scrn (Ecstasy) Negative (Negative) U Benzodiazepines Scrn Positive H (Negative) Urine Cocaine Screen Negative (Negative) U Marijuana (THC) Screen Positive H (Negative) Urine pH Normal (Normal) Urine Specific Lapaz Normal (Normal) Ur Creatinine Normal (Normal) Imaging Data CT - cervical spine: Radiologist's Impression: [place] [address] CT Scan Report Signed Patient: Re Willis MR#: [id number] : 1985 Acct:[id number] Age/Sex: 39 / F Date of Service: 01/15/25 Loc: ED Accession Number: [id number] Procedure: CT cervical spine wo con Ordering Provider: Antonio Banks D.O. PROCEDURE: CT CERVICAL SPINE WO CON INDICATIONS: trauma TECHNIQUE: Noncontrast 3 mm thick sections acquired from the skull base to the T4 level. Sagittal and coronal reformats were then constructed. For radiation dose reduction, the following was used: automated exposure control, adjustment of mA and/or kV according to patient size. COMPARISON: None. FINDINGS: Image quality: Excellent. Bones: No fractures or dislocations. Visualized superior ribs are intact. Soft tissues: Prevertebral soft tissues are normal in thickness. No paravertebral hematomas. No apical pneumothoraces. IMPRESSION: No displaced fracture or traumatic subluxation. Chest x-ray: Radiologist's Impression: [address] [address] XRay Report Signed Patient: Re Willis MR#: [id number] : 1985 Acct:[id number] Age/Sex: 39 / F Date of Service: 01/15/25 Loc: ED Accession Number: [id number] Procedure: XR chest 1V Ordering Provider: Antonio Banks D.O. PROCEDURE: XR CHEST 1V INDICATIONS: Chest Pain TECHNIQUE: One view of the chest was acquired. COMPARISON: [facility], , XR CHEST 1V, 09/08/2021, 16:42. FINDINGS: Surgical changes and devices: None. Lungs and pleura: Lungs are clear. No pleural effusions or pneumothorax. Mediastinum: Mediastinal contours appear normal. Heart size is normal. Bones and chest wall: Healing right lateral 10th rib fracture, with associated bone callus formation. IMPRESSION: No acute cardiopulmonary abnormality is seen. Healing right lateral 10th rib fracture, with associated bone callus formation. ECG Data Interpretation: NSR HR 64 ND [address] QRS [address]-t wave changed No previous ekg MDM Narrative Medical decision making narrative: All lab work, vital signs, nurse triage note, medication list, previous ER visits, and all imaging studies including chest x-ray and CT cervical spine have been reviewed. Chest x-ray showed no acute process but healing right lateral 10th rib fracture. Cervical C-spine showed no displaced fracture or traumatic subluxation. GCS 15 nonfocal neuro exam alert and oriented x4 moving all extremities with no difficulty. Positive for marijuana and lipase was 320 otherwise rest of the lab work was unremarkable. Differential diagnosis PTSD, orthostatic hypotension, pots syndrome, acute stress disorder. Patient will follow up with PCP this coming week and to return with new or worsening symptoms. Discharge Plan Departure Patient Disposition: Home Clinical Impression: Near syncope Instructions: DI for Syncope in Adults (Fainting) Activity Restrictions/Additional Instructions: Return with new or worsening symptoms. Follow up with PCP this week for re-evaluation. Keep hydrated. Prescriptions: No Action drospirenone-ethinyl estradiol 3-0.03 mg tablet 1 tab PO DAILY ondansetron 4 mg tablet,disintegrating 4 mg PO Q8H PRN (Reason: nausea and vomiting) Qty: 21 0RF valacyclovir [Valtrex] 1 gram tablet 2,000 mg PO Q12H PRN (Reason: cold sores) Qty: 30 2RF Rx Instructions: Take 2 tabs every 12 hours x 1 day as needed for cold sores trazodone 50 mg tablet 50 mg PO DAILY Qty: 30 0RF lorazepam 1 mg tablet 1 mg PO DAILY PRN (Reason: dentist) Qty: 10 0RF cyclobenzaprine 5 mg tablet 5 mg PO .nightly PRN Qty: 30 6RF Rx Instructions: PRN - muscle pain dextroamphetamine-amphetamine [Adderall XR] 5 mg capsule,extended release 24hr 5 mg PO DAILY Qty: 30 0RF bupropion HCl 150 mg tablet extended release 24 hr 150 mg PO QAM Qty: 90 0RF cetirizine 10 mg tablet 10 mg DAILY duloxetine 40 mg capsule,delayed release(DR/EC) 60 mg PO DAILY Referrals: Saba Rojas [Primary Care Provider] - Stand Alone Forms: Patient Portal/API/Survey, Work Release Note
--- NOTE | 2025-01-15 19:40 | DI.RAD.S_ITS ---
PROCEDURE: XR CHEST 1V INDICATIONS: Chest Pain TECHNIQUE: One view of the chest was acquired. COMPARISON: [facility], CR, XR CHEST 1V, 09/08/2021, 16:42. FINDINGS: Surgical changes and devices: None. Lungs and pleura: Lungs are clear. No pleural effusions or pneumothorax. Mediastinum: Mediastinal contours appear normal. Heart size is normal. Bones and chest wall: Healing right lateral 10th rib fracture, with associated bone callus formation. IMPRESSION: No acute cardiopulmonary abnormality is seen. Healing right lateral 10th rib fracture, with associated bone callus formation. Dictated by: Clark Mc M.D. on 01/15/2025 at 20:22 Approved by: Clark Mc M.D. on 01/15/2025 at 20:22
--- NOTE | 2025-01-15 19:46 | DI.CT.S_ITS ---
PROCEDURE: CT CERVICAL SPINE WO CON INDICATIONS: trauma TECHNIQUE: Noncontrast 3 mm thick sections acquired from the skull base to the T4 level. Sagittal and coronal reformats were then constructed. For radiation dose reduction, the following was used: automated exposure control, adjustment of mA and/or kV according to patient size. COMPARISON: None. FINDINGS: Image quality: Excellent. Bones: No fractures or dislocations. Visualized superior ribs are intact. Soft tissues: Prevertebral soft tissues are normal in thickness. No paravertebral hematomas. No apical pneumothoraces. IMPRESSION: No displaced fracture or traumatic subluxation. Dictated by: Clark Mc M.D. on 01/15/2025 at 20:24 Approved by: Clark Mc M.D. on 01/15/2025 at 20:25
[2025-01-15 19:48] LABS: Prothrombin Time 11.8 SECONDS (9.4-12.5)
[2025-01-15 19:49] LABS: Add Manual Diff / Slide Review NO; Basophils Absolute Auto 100 /uL (0-100); Eosinophils Absolute Auto 0 /uL (0-450); Eosinophils Percent Auto 0.3 % (2-4); Hematocrit 36.9 % (36-46); Hemoglobin 12.4 g/dL (12.0-16.0); Lymphocytes Absolute Auto 2100 /uL (1100-4500); Lymphocytes Percent Auto 20.8 % (25-40); Mean Corpuscular HGB Conc 33.5 % (30-36); Mean Corpuscular Volume 89.5 fL (80-100); Monocytes Absolute Auto 600 /uL (0-900); Monocytes Percent Auto 5.4 % (3-14); Neutrophils Absolute Auto 7400 /uL (1500-7000); Neutrophils Percent Auto 72.5 % (50-75); Platelet Count 250 X10^3/uL (150-400); Red Blood Cell Count 4.13 X10^6/uL (4.0-5.2); Red Cell Distribution Width 12.8 % (11.6-14.8); White Blood Cell Count 10.3 X10^3/uL (4.5-11.0)
[2025-01-15] MEDS: LACTATED RINGERS 1,000 ML 1000 ML IV (19:49)
[2025-01-15] MEDS: ASPIRIN 81 MG CHEW TAB 324 MG PO (19:49)
[2025-01-15 19:51] LABS: PTT Partial Thromboplastin Tim 34 SECONDS (25.1-36.5)
[2025-01-15 19:54] LABS: Blood Urea Nitrogen 10 mg/dL (7-17); Carbon Dioxide 24 mmol/L (22-32); Chloride 106 mmol/L (98-107); Creatine Kinase 29 U/L (30-135); HEMOLYSIS < 15 (0-50); Potassium 3.7 mmol/L (3.4-5.1); Sodium 137 mmol/L (137-145)
--- NOTE | 2025-01-15 19:54 | EKG_ITS ---
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
[2025-01-15 19:55] LABS: Alanine Aminotransferase 15 IU/L (<35); Albumin 4.4 g/dL (3.5-5.0); Albumin Globulin Ratio 1.7 (1.0-2.8); Alkaline Phosphatase 51 U/L (38-126); Aspartate Aminotransferase 20 IU/L (14-36); BUN Creatinine Ratio 18.9 (6-22); Bilirubin Total 0.7 mg/dL (0.2-1.3); Calcium 9.3 mg/dL (8.4-10.2); Estimated Glomerular Filt Rate > 60 mL/min (>60); Globulin 2.6 g/dL (1.7-4.1); Glucose 84 mg/dL (70-99); Lipase 320 U/L (23-300); Magnesium 1.8 mg/dL (1.6-2.3)
[2025-01-15 20:06] LABS: D Dimer < 215 ng/ml (<500); NT-proBNP (BNP-Adult 18+) 111 pg/mL (<125); Troponin I < 0.012 ng/mL (0.01-0.034)
[2025-01-15 20:44] LABS: Ur Creatinine Normal (Normal); Ur Specific Gravity Normal (Normal); Urine Amphetamines Negative (Negative); Urine Barbiturates Negative (Negative); Urine Benzodiazepines Positive (Negative); Urine Cocaine Negative (Negative); Urine MDMA Negative (Negative); Urine Methadone Negative (Negative); Urine Opiates Negative (Negative); Urine Oxycodone Negative (Negative); Urine Phencyclidine Negative (Negative); Urine THC Positive (Negative); Urine Tricyclic Antidepressant Negative (Negative); Urine pH Normal (Normal)
[2025-01-15 20:47] LABS: Bacteria Urine None Seen; Mucus Urine 1+ (Negative); RBC Urine 1-5/HPF (0-5/HPF); Squamous Epithelial Cell Urine 0-1 /HPF (0-5/HPF); Urine Volume 10mL (spun); WBC Urine 1-5/HPF (0-5/HPF)
[2025-01-15 20:48] LABS: Culture Indicated Urine Cult Not Indicated; Pregnancy Test Urine Negative (Negative)
--- NOTE | 2025-01-15 21:31 | PC.NURSE ---
Ortho VS performed. Pt c/o dizziness and palpitations w/standing vitals. RR 88 & BP 138/87. Pt noted to be visibly shaking when laying back in bed. aware.
== END 2025-01-15 23:20 | disposition home or self-care (01) ==
PROVIDERS: Emergency Provider Family Medicine; Family Provider Family Medicine; PCP Student in an Organized Health Care Education/Training Program
DX: R55 Syncope and collapse (principal); R07.9 Chest pain, unspecified
CPT/HCPCS: 36415; 71045; 72125; 80053; 80305; 81015; 81025; 82550; 83690; 83735; 83880; 84484; 85025; 85379; 85610; 85730; 93005; 99284